=== PATIENT | male | born 1990 | race Two or more races ===

== ENCOUNTER 2022-11-08 00:43 | Inpatient (IN) | payer MEDICAID, OTHER ==
[~2022-11-08] VITALS: Ht 177.8 cm; Wt 71.4 kg
[2022-11-08] VITALS (56 sets, daily range): BP systolic 66–127; BP diastolic 24–62; PULSE 101–157; RESP 15–36; TEMP 99.1–108; O2SAT 95–100
[2022-11-08] MEDS ORDERED: HALOPERIDOL LACTATE 5 MG/ML INJ VIAL ONE (00:49)
[2022-11-08] MEDS ORDERED: SUCCINYLCHOLINE CHLORIDE 20 MG/ML 10ML VIAL IV ONE ×4 (00:49→08:15)
[2022-11-08] MEDS ORDERED: ETOMIDATE (2MG/ML) 20ML VIAL IV ONE ×3 (00:50→08:15)
[2022-11-08] MEDS ORDERED: MIDAZOLAM DRIP 50 mg/50mL 50 ML IV ONE ×3 (00:59→08:21)
[2022-11-08] MEDS: MIDAZOLAM DRIP 50 mg/50mL 50 ML IV SCH ×3 (01:00→22:40)
[2022-11-08] MEDS: PROPOFOL 100 ML IV SCH ×2 (01:15→07:31)
[2022-11-08] MEDS ORDERED: ACETAMINOPHEN 650 MG RECT SUPP PR ONE (01:15)
[2022-11-08] MEDS ORDERED: SODIUM CHLORIDE 0.9% 2,100 ML IV ONE ×2 (01:15→01:45)
[2022-11-08] MEDS ORDERED: ACETAMINOPHEN IV 1000 MG/100ML (10MG/ML) IV ONE (01:30)
[2022-11-08] MEDS ORDERED: HALOPERIDOL LACTATE 5 MG/ML INJ VIAL IM ONE ×3 (01:30→08:15)
[2022-11-08] MEDS ORDERED: LORazepam 2MG/ML-1ML VIAL IM ONE (01:30)
[2022-11-08] MEDS ORDERED: diphenhdrAMINE HCL 50 MG/1 ML VL IM ONE (01:30)
[2022-11-08] MEDS ORDERED: ALBUMIN 25% 100 ML IV ONE (01:30)
[2022-11-08] MEDS ORDERED: VANCOMYCIN 1GM/250ML 250 ML IV ONE (01:30)
[2022-11-08] MEDS ORDERED: SODIUM CHLORIDE 0.9% 1,000 ML IV ONE (01:30)
[2022-11-08] MEDS ORDERED: ONDANSETRON HCL 4 MG/2 ML VIAL IV ONE (01:30)
[2022-11-08 01:32] LABS: Basophils # (auto) 0.1 10 ^3/uL (0-0.2); Basophils % (auto) 0.5 % (0.0-2.0); Eosinophils # (auto) 0 10 ^3/uL (0-0.8); Eosinophils % (auto) 0.1 % (0.0-7.0); Hematocrit 44.3 % (41.0-53.0); Lymphocytes # (auto) 3.9 10 ^3/uL (0.4-5.4); Lymphocytes % (auto) 24.2 % (10.0-50.0); Mean Corpuscular Hemoglobin 29.6 pg (28.0-32.0); Mean Corpuscular Volume 87.1 fL (80.0-100.0); Monocytes # (auto) 1.3 10 ^3/uL (0-1.3); Monocytes % (auto) 8.2 % (0.0-12.0); Neutrophils # (auto) 10.7 10 ^3/uL (1.6-8.6); Red Blood Cells 5.08 10^6/uL (4.5-5.90); Red Cell Distribution Width 13.7 % (11.8-14.3)
[2022-11-08] MEDS ORDERED: SODIUM BICARBONATE 8.4 % INJ 50ML VIAL IV ONE ×2 (01:45→10:15)
[2022-11-08] MEDS ORDERED: ROCURONIUM 10MG/ML 10ML VIAL IV ONE ×3 (01:45)
[2022-11-08 01:50] LABS: INR 1.09 (0.9-1.15); Partial Thromboplastin Time 25.5 SEC (24.5-34.5); Prothrombin Time 11.4 sec (9.3-11.8)
[2022-11-08 02:00] LABS: Lactic Acid w/Reflex 12.1 mmol/L (0.4-2.0)
[2022-11-08 02:08] LABS: Albumin 4.3 g/dL (3.4-5.0); BUN/Creatinine Ratio 12.7 (10.0-20.0); Calcium 8.4 mg/dL (8.5-10.1); Magnesium 2.5 mg/dL (1.6-2.6); Potassium 3.8 mmol/L (3.5-5.1)
[2022-11-08] MEDS ORDERED: NOREPINEPHRINE 8 MG/250ML KIT 250 ML IV ONE (02:09)
[2022-11-08 02:11] LABS: Bilirubin, Total 0.7 mg/dL (0.2-1.0); Total Protein 7.8 g/dL (6.4-8.2)
[2022-11-08] MEDS: NOREPINEPHRINE 8 MG/250ML KIT 250 ML IV SCH (02:30)
[2022-11-08 02:50] LABS: Base Excess -10.3 mmol/L (-2.0-2.0)
[2022-11-08] MEDS ORDERED: cefTRIAXone 1GM/50ML D5W 50 ML IV SCH (03:00)
[2022-11-08 03:56] LABS: Lactic Acid w/Reflex 4.2 mmol/L (0.4-2.0)
[2022-11-08] MEDS: fentaNYL Drip 2500mCg/250mlNS 250 ML IV SCH ×2 (04:00→05:00)
[2022-11-08] MEDS: VASOPRESSIN 20 UNITS in SODIUM CHL 0.9% 99 ML IV SCH ×2 (04:00→15:07)
[2022-11-08] MEDS ORDERED: fentaNYL Drip 2500mCg/250mlNS 250 ML IV ONE (04:08)
[2022-11-08] MEDS ORDERED: DOCUSATE SOD 100 MG CAP PO PRN (04:30)
[2022-11-08] MEDS ORDERED: NITROGLYCERIN 0.4 MG SL TAB SL PRN (04:30)
[2022-11-08] MEDS ORDERED: ONDANSETRON HCL 4 MG/2 ML VIAL IV PRN (04:30)
[2022-11-08] MEDS ORDERED: DEXTROSE (50%) 50ML SYRG IV PRN (04:30)
[2022-11-08] MEDS ORDERED: SODIUM CHLORIDE 0.9% 1,000 ML IV SCH (04:30)
[2022-11-08] MEDS ORDERED: MORPHINE SULFATE INJ 2 MG/ml SYRG IV PRN (04:30)
[2022-11-08] MEDS ORDERED: NALOXONE HCL 1MG/ML 2ML SYRINGE IM ONE (05:45)
[2022-11-08] MEDS: ACCU-CHEK COMFORT CURVE STRIP VI SCH ×4 (08:00→22:35)
[2022-11-08] MEDS: InsuLIN REG 1unit/0.01ml Soln (100units/ml) SC SCH ×4 (08:00→20:00)
[2022-11-08 09:39] LABS: Base Excess -10.5 mmol/L (-2.0-2.0)
[2022-11-08] MEDS ORDERED: HEPARIN SODIUM (PORCINE) 5000 UNITS/ML 1ML VIAL IV ONE (09:45)
[2022-11-08] MEDS: PIPERACILLIN-TAZO 4.5GM 100 ML IV SCH ×3 (09:48→23:24)
[2022-11-08] MEDS: HEPARIN SODIUM (PORCINE) 5000 UNITS/ML 1ML VIAL SC SCH ×2 (10:00→22:00)
[2022-11-08] MEDS: FAMOTIDINE (10MG/ML) 2ML VL IV SCH (10:00)
[2022-11-08 12:54] LABS: Urine Bacteria FEW /hpf (None Seen); Urine Blood 3+ /uL (Negative); Urine Clarity HAZY (Clear); Urine Color Red (Yellow); Urine Hyaline Cast FEW /lpf (0 - 2); Urine Protein, UAD 2+ (Negative); Urine Specific Gravity 1.004 (1.001-1.035); Urine Sperm PRESENT /hpf (None Seen); Urine Urobilinogen Normal (Negative); Urine WBC 94 /hpf (0 - 3)
[2022-11-08 13:17] LABS: Alcohol, Urine < 3.0 mg/dL (0-10); Amphetamine Screen, Urine POSITIVE (NEGATIVE); Barbiturate Scree,Urine NEGATIVE (NEGATIVE); Benzodiazephine Screen, Urine NEGATIVE (NEGATIVE); Cannabinoid Screen, Urine NEGATIVE (NEGATIVE); Cocaine Screen, Urine NEGATIVE (NEGATIVE); Phencyclidine Screen, Urine NEGATIVE (NEGATIVE)
[2022-11-08 13:24] LABS: Opiate Scree,Urine NEGATIVE (NEGATIVE)
[2022-11-08 15:24] LABS: Base Excess -9.6 mmol/L (-2.0-2.0)
[2022-11-08 15:57] LABS: Albumin 3.9 g/dL (3.4-5.0); BUN/Creatinine Ratio 17.2 (10.0-20.0)
[2022-11-08 15:59] LABS: Bilirubin, Total 0.9 mg/dL (0.2-1.0); Total Protein 6.4 g/dL (6.4-8.2)
[2022-11-08 16:03] LABS: Potassium 2.7 mmol/L (3.5-5.1)
[2022-11-08 16:33] LABS: Lactic Acid w/Reflex 2.5 mmol/L (0.4-2.0)
[2022-11-08 17:06] LABS: Eosinophils # (auto) 0 10 ^3/uL (0-0.8); Lymphocytes # (auto) 0.6 10 ^3/uL (0.4-5.4); Monocytes # (auto) 0.8 10 ^3/uL (0-1.3); Neutrophils # (auto) 6.5 10 ^3/uL (1.6-8.6)
[2022-11-08 17:08] LABS: Basophils # (auto) 0 10 ^3/uL (0-0.2); Basophils % (auto) 0.2 % (0.0-2.0); Hematocrit 45.3 % (41.0-53.0); Hemoglobin 15.4 g/dL (13.5-17.5); Lymphocytes % (auto) 8.1 % (10.0-50.0); Mean Corpuscular Hemoglobin 29.6 pg (28.0-32.0); Mean Corpuscular Hgb Conc. 34.1 g/dL (32.0-36.0); Mean Corpuscular Volume 86.9 fL (80.0-100.0); Monocytes % (auto) 10.2 % (0.0-12.0); Neutrophils % (auto) 81.5 % (37.0-80.0); Nucleated Red Blood Cells % 0.4 %; Red Blood Cells 5.22 10^6/uL (4.5-5.90); Red Cell Distribution Width 14.2 % (11.8-14.3)
[2022-11-08 17:23] LABS: Platelet Estimate Decreased
[2022-11-08] MEDS: POTASSIUM CHL 20MEQ/100ML 100 ML IV SCH ×3 (17:50→23:25)
[2022-11-08] MEDS: LACTATED RINGER'S 1,000 ML IV SCH (17:50)
[2022-11-08] MEDS ORDERED: BUMETANIDE 2.5mg/10ml (0.25 mg/ml) INJ IV ONE ×2 (19:00→19:30)
[2022-11-08] MEDS: PANTOPRAZOLE 40 MG/10 ML VIAL INJ IV SCH (22:35)
[2022-11-08] MEDS: LACTULOSE 20Gm/30ML SOLN PO SCH (22:35)
[2022-11-09] VITALS (111 sets, daily range): BP systolic 104–138; BP diastolic 44–76; PULSE 60–114; RESP 15–29; TEMP 92.1–99.5; O2SAT 95–100
[2022-11-09] MEDS: ACCU-CHEK COMFORT CURVE STRIP VI SCH ×7 (00:26→23:40)
[2022-11-09] MEDS: LACTATED RINGER'S 1,000 ML IV SCH ×5 (01:30→20:21)
[2022-11-09] MEDS: VASOPRESSIN 20 UNITS in SODIUM CHL 0.9% 99 ML IV SCH ×2 (02:14→13:21)
[2022-11-09] MEDS: MIDAZOLAM DRIP 50 mg/50mL 50 ML IV SCH ×5 (02:31→21:58)
[2022-11-09] MEDS: InsuLIN REG 1unit/0.01ml Soln (100units/ml) SC SCH ×7 (04:00→23:41)
[2022-11-09] MEDS: fentaNYL Drip 2500mCg/250mlNS 250 ML IV SCH ×3 (04:22→20:17)
[2022-11-09 04:48] LABS: Basophils # (auto) 0 10 ^3/uL (0-0.2); Basophils % (auto) 0.1 % (0.0-2.0); Eosinophils # (auto) 0 10 ^3/uL (0-0.8); Hemoglobin 15.1 g/dL (13.5-17.5); Mean Corpuscular Hemoglobin 30.4 pg (28.0-32.0); Monocytes # (auto) 0.5 10 ^3/uL (0-1.3); Monocytes % (auto) 6.1 % (0.0-12.0)
[2022-11-09 04:50] LABS: Hematocrit 43.3 % (41.0-53.0); Lymphocytes # (auto) 0.9 10 ^3/uL (0.4-5.4); Lymphocytes % (auto) 10.5 % (10.0-50.0); Mean Corpuscular Hgb Conc. 34.8 g/dL (32.0-36.0); Mean Corpuscular Volume 87.3 fL (80.0-100.0); Neutrophils # (auto) 7.3 10 ^3/uL (1.6-8.6); Neutrophils % (auto) 83.3 % (37.0-80.0); Nucleated Red Blood Cells % 0.2 %; Red Blood Cells 4.96 10^6/uL (4.5-5.90); Red Cell Distribution Width 14.2 % (11.8-14.3); White Blood Cell 8.8 10^3/uL (4.4-10.8)
[2022-11-09] MEDS: NOREPINEPHRINE 8 MG/250ML KIT 250 ML IV SCH (05:15)
[2022-11-09 07:31] LABS: Base Excess -10.9 mmol/L (-2.0-2.0)
[2022-11-09] MEDS: PIPERACILLIN-TAZO 4.5GM 100 ML IV SCH (08:32)
[2022-11-09 09:39] LABS: Platelet Estimate Decreased; RBC Morphology Normal
[2022-11-09 09:42] LABS: Giant Platelets Few; Large Platelets MODERATE
[2022-11-09] MEDS: LACTULOSE 20Gm/30ML SOLN PO SCH ×2 (10:00→22:00)
[2022-11-09] MEDS: FAMOTIDINE (10MG/ML) 2ML VL IV SCH (10:00)
[2022-11-09] MEDS: PANTOPRAZOLE 40 MG/10 ML VIAL INJ IV SCH ×2 (11:24→21:53)
[2022-11-09 11:49] LABS: Potassium 3.8 mmol/L (3.5-5.1)
[2022-11-09 11:51] LABS: Albumin 3.1 g/dL (3.4-5.0); BUN/Creatinine Ratio 17.6 (10.0-20.0); Calcium 6.5 mg/dL (8.5-10.1)
[2022-11-09 11:52] LABS: Total Protein 5.9 g/dL (6.4-8.2)
[2022-11-09] MEDS ORDERED: SODIUM BICARBONATE 8.4 % INJ 50ML VIAL IV ONE (12:00)
[2022-11-09] MEDS ORDERED: HEPARIN SODIUM (PORCINE) 5000 UNITS/ML 1ML VIAL IV ONE (13:15)
[2022-11-09] MEDS ORDERED: HEPARIN SODIUM (PORCINE) 5000 UNITS/ML 1ML VIAL ONE (13:20)
[2022-11-09] MEDS ORDERED: LACTATED RINGER'S 1,000 ML IV ONE (13:45)
[2022-11-09] MEDS: BUMETANIDE 2.5mg/10ml (0.25 mg/ml) INJ IV SCH ×2 (14:06→18:11)
[2022-11-09] MEDS: PIPERACILLIN-TAZOB 3.375GM 100 ML IV SCH ×2 (18:11→23:41)
[2022-11-09 22:48] LABS: Hemoglobin 12.6 g/dL (13.5-17.5)
[2022-11-09 22:51] LABS: Basophils # (auto) 0 10 ^3/uL (0-0.2); Basophils % (auto) 0.3 % (0.0-2.0); Eosinophils # (auto) 0 10 ^3/uL (0-0.8); Hematocrit 36.4 % (41.0-53.0); Lymphocytes # (auto) 1.2 10 ^3/uL (0.4-5.4); Mean Corpuscular Hemoglobin 29.9 pg (28.0-32.0); Mean Corpuscular Hgb Conc. 34.7 g/dL (32.0-36.0); Monocytes # (auto) 0.9 10 ^3/uL (0-1.3); Monocytes % (auto) 7.9 % (0.0-12.0); Neutrophils % (auto) 80.8 % (37.0-80.0); Nucleated Red Blood Cells % 0.6 %; Red Blood Cells 4.23 10^6/uL (4.5-5.90); Red Cell Distribution Width 14.3 % (11.8-14.3); White Blood Cell 11.2 10^3/uL (4.4-10.8)
[2022-11-09 23:44] LABS: Large Platelets FEW; Platelet Estimate Decreased
[2022-11-10] VITALS (104 sets, daily range): BP systolic 120–147; BP diastolic 62–80; PULSE 92–107; RESP 13–17; TEMP 95.2–99.3; O2SAT 100
[2022-11-10] MEDS: VASOPRESSIN 20 UNITS in SODIUM CHL 0.9% 99 ML IV SCH ×3 (00:28→22:42)
[2022-11-10] MEDS: PROPOFOL 100 ML IV SCH (01:15)
[2022-11-10] MEDS: MIDAZOLAM DRIP 50 mg/50mL 50 ML IV SCH ×2 (01:52→05:35)
[2022-11-10] MEDS: InsuLIN REG 1unit/0.01ml Soln (100units/ml) SC SCH ×6 (04:00→23:45)
[2022-11-10 04:18] LABS: Albumin 2.4 g/dL (3.4-5.0); Calcium 6.7 mg/dL (8.5-10.1); Potassium 3.6 mmol/L (3.5-5.1)
[2022-11-10 04:21] LABS: BUN/Creatinine Ratio 13.4 (10.0-20.0)
[2022-11-10] MEDS: ACCU-CHEK COMFORT CURVE STRIP VI SCH ×6 (04:22→23:46)
[2022-11-10] MEDS: LACTATED RINGER'S 1,000 ML IV SCH ×5 (04:23→23:00)
[2022-11-10] MEDS: NOREPINEPHRINE 8 MG/250ML KIT 250 ML IV SCH (04:23)
[2022-11-10 04:47] LABS: Bilirubin, Total 1.2 mg/dL (0.2-1.0); Phosphorus 6.7 mg/dL (2.5-4.90); Total Protein 4.6 g/dL (6.4-8.2)
[2022-11-10 05:19] LABS: Erythrocyte Sedimentation Rate 5 mm/hr (0-20)
[2022-11-10] MEDS: BUMETANIDE 2.5mg/10ml (0.25 mg/ml) INJ IV SCH ×2 (05:34→17:07)
[2022-11-10] MEDS ORDERED: SODIUM CHL 0.9% 1000 ML BAG XX ONE (07:00)
[2022-11-10 08:35] LABS: Base Excess -6.1 mmol/L (-2.0-2.0)
[2022-11-10] MEDS: LACTULOSE 20Gm/30ML SOLN PO SCH ×2 (10:00→21:30)
[2022-11-10] MEDS: PIPERACILLIN-TAZOB 3.375GM 100 ML IV SCH ×3 (12:38→23:42)
[2022-11-10] MEDS: FAMOTIDINE (10MG/ML) 2ML VL IV SCH (12:38)
[2022-11-10] MEDS: PANTOPRAZOLE 40 MG/10 ML VIAL INJ IV SCH ×2 (12:39→21:32)
[2022-11-10 17:59] LABS: Basophils # (auto) 0.1 10 ^3/uL (0-0.2); Eosinophils # (auto) 0 10 ^3/uL (0-0.8); Hemoglobin 12.2 g/dL (13.5-17.5); Lymphocytes # (auto) 0.4 10 ^3/uL (0.4-5.4); Monocytes # (auto) 0.7 10 ^3/uL (0-1.3); Neutrophils # (auto) 10.4 10 ^3/uL (1.6-8.6); White Blood Cell 11.6 10^3/uL (4.4-10.8)
[2022-11-10 18:01] LABS: Basophils % (auto) 0.8 % (0.0-2.0); Eosinophils % (auto) 0.1 % (0.0-7.0); Hematocrit 35.7 % (41.0-53.0); Lymphocytes % (auto) 3.7 % (10.0-50.0); Mean Corpuscular Hemoglobin 29.4 pg (28.0-32.0); Mean Corpuscular Hgb Conc. 34.3 g/dL (32.0-36.0); Mean Corpuscular Volume 85.7 fL (80.0-100.0); Monocytes % (auto) 5.7 % (0.0-12.0); Neutrophils % (auto) 89.7 % (37.0-80.0); Nucleated Red Blood Cells % 0.1 %; Red Blood Cells 4.16 10^6/uL (4.5-5.90); Red Cell Distribution Width 14.8 % (11.8-14.3)
[2022-11-10 18:27] LABS: Albumin 2.5 g/dL (3.4-5.0); Calcium 7.3 mg/dL (8.5-10.1); Potassium 3.5 mmol/L (3.5-5.1)
[2022-11-10 18:29] LABS: BUN/Creatinine Ratio 11.2 (10.0-20.0)
[2022-11-10 18:32] LABS: Bilirubin, Total 1.5 mg/dL (0.2-1.0); Total Protein 4.8 g/dL (6.4-8.2)
[2022-11-10] MEDS ORDERED: EPOETIN ALFA-EPBX 10,000 UNIT/1ML VIAL SC ONE (21:00)
[2022-11-10 23:52] LABS: Basophils # (auto) 0.1 10 ^3/uL (0-0.2); Eosinophils # (auto) 0 10 ^3/uL (0-0.8); Eosinophils % (auto) 0.1 % (0.0-7.0); Monocytes # (auto) 0.9 10 ^3/uL (0-1.3); Nucleated Red Blood Cells % 0.1 %
[2022-11-10 23:54] LABS: Basophils % (auto) 0.6 % (0.0-2.0); Hematocrit 35.5 % (41.0-53.0); Hemoglobin 12.4 g/dL (13.5-17.5); Lymphocytes # (auto) 0.9 10 ^3/uL (0.4-5.4); Lymphocytes % (auto) 9.2 % (10.0-50.0); Mean Corpuscular Hemoglobin 30.1 pg (28.0-32.0); Mean Corpuscular Hgb Conc. 34.9 g/dL (32.0-36.0); Mean Corpuscular Volume 86.3 fL (80.0-100.0); Monocytes % (auto) 9.1 % (0.0-12.0); Neutrophils # (auto) 8.4 10 ^3/uL (1.6-8.6); Red Blood Cells 4.11 10^6/uL (4.5-5.90); Red Cell Distribution Width 14.7 % (11.8-14.3); White Blood Cell 10.3 10^3/uL (4.4-10.8)
[2022-11-11] VITALS (103 sets, daily range): BP systolic 117–146; BP diastolic 56–88; PULSE 97–126; RESP 11–44; TEMP 96.6–100.9; O2SAT 86–100
[2022-11-11 00:04] LABS: INR 1.19 (0.9-1.15); Partial Thromboplastin Time 33.3 SEC (24.5-34.5); Prothrombin Time 12.4 sec (9.3-11.8)
[2022-11-11] MEDS: PROPOFOL 100 ML IV SCH (01:06)
[2022-11-11] MEDS: ACCU-CHEK COMFORT CURVE STRIP VI SCH ×5 (03:39→20:22)
[2022-11-11] MEDS: InsuLIN REG 1unit/0.01ml Soln (100units/ml) SC SCH ×5 (03:39→20:23)
[2022-11-11 03:49] LABS: Basophils # (auto) 0 10 ^3/uL (0-0.2); Basophils % (auto) 0.4 % (0.0-2.0); Eosinophils # (auto) 0 10 ^3/uL (0-0.8); Eosinophils % (auto) 0.2 % (0.0-7.0); Hematocrit 33.7 % (41.0-53.0); Hemoglobin 11.7 g/dL (13.5-17.5); Lymphocytes # (auto) 0.8 10 ^3/uL (0.4-5.4); Lymphocytes % (auto) 8.5 % (10.0-50.0); Mean Corpuscular Hemoglobin 29.9 pg (28.0-32.0); Mean Corpuscular Hgb Conc. 34.7 g/dL (32.0-36.0); Mean Corpuscular Volume 86.4 fL (80.0-100.0); Monocytes # (auto) 0.8 10 ^3/uL (0-1.3); Monocytes % (auto) 8.4 % (0.0-12.0); Neutrophils # (auto) 8.2 10 ^3/uL (1.6-8.6); Neutrophils % (auto) 82.5 % (37.0-80.0); Nucleated Red Blood Cells % 0.1 %; Red Cell Distribution Width 14.5 % (11.8-14.3)
[2022-11-11] MEDS: LACTATED RINGER'S 1,000 ML IV SCH ×3 (04:00→14:00)
[2022-11-11] MEDS: fentaNYL Drip 2500mCg/250mlNS 250 ML IV SCH (04:00)
[2022-11-11 04:09] LABS: Potassium 3.6 mmol/L (3.5-5.1)
[2022-11-11 04:22] LABS: Albumin 2.3 g/dL (3.4-5.0); BUN/Creatinine Ratio 9.8 (10.0-20.0); Bilirubin, Total 1.3 mg/dL (0.2-1.0); CRP High Sensitivity 2.76 mg/dL (< 0.3); Calcium 7.1 mg/dL (8.5-10.1); Total Protein 4.8 g/dL (6.4-8.2)
[2022-11-11] MEDS: NOREPINEPHRINE 8 MG/250ML KIT 250 ML IV SCH (05:15)
[2022-11-11] MEDS: BUMETANIDE 2.5mg/10ml (0.25 mg/ml) INJ IV SCH ×2 (05:38→18:11)
[2022-11-11] MEDS ORDERED: DESMOPRESSIN INJECTION 20 MCG in SODIUM CHL 0.9% 50 ML IV ONE (07:00)
[2022-11-11] MEDS: PIPERACILLIN-TAZOB 3.375GM 100 ML IV SCH ×2 (08:48→17:07)
[2022-11-11 09:24] LABS: Folate (Folic Acid) 21.11 ng/mL (5.38-24)
[2022-11-11] MEDS: VASOPRESSIN 20 UNITS in SODIUM CHL 0.9% 99 ML IV SCH ×2 (09:49→20:56)
[2022-11-11 12:54] LABS: Hepatitis A Ab IgM Negative
[2022-11-11 12:55] LABS: Hepatitis B Core IgM Negative; Hepatitis B Surface Antigen Negative (Negative); Hepatitis C Antibody Negative (Negative)
[2022-11-11] MEDS: LACTULOSE 20Gm/30ML SOLN PO SCH ×2 (14:00→22:00)
[2022-11-11] MEDS: PANTOPRAZOLE 40 MG/10 ML VIAL INJ IV SCH ×2 (14:00→22:19)
[2022-11-11] MEDS: ACETAMINOPHEN 650 mg PER 20.3 mL UD GT PRN (18:11)
[2022-11-11] MEDS: cefTRIAXone 1GM/50ML D5W 50 ML IV SCH (20:32)
[2022-11-12] VITALS (97 sets, daily range): BP systolic 93–159; BP diastolic 19–94; PULSE 98–128; RESP 11–31; TEMP 95–100.2; O2SAT 99–100
[2022-11-12] MEDS: ACCU-CHEK COMFORT CURVE STRIP VI SCH ×7 (00:24→23:35)
[2022-11-12] MEDS: InsuLIN REG 1unit/0.01ml Soln (100units/ml) SC SCH ×7 (00:25→23:35)
[2022-11-12] MEDS: MIDAZOLAM DRIP 50 mg/50mL 50 ML IV SCH (01:00)
[2022-11-12] MEDS: PROPOFOL 100 ML IV SCH (01:15)
[2022-11-12] MEDS: fentaNYL Drip 2500mCg/250mlNS 250 ML IV SCH (04:00)
[2022-11-12 04:25] LABS: Calcium 7.8 mg/dL (8.5-10.1); Potassium 4.6 mmol/L (3.5-5.1)
[2022-11-12] MEDS: NOREPINEPHRINE 8 MG/250ML KIT 250 ML IV SCH (05:00)
[2022-11-12] MEDS: BUMETANIDE 2.5mg/10ml (0.25 mg/ml) INJ IV SCH ×2 (06:13→18:17)
[2022-11-12 07:15] LABS: Base Excess -0.5 mmol/L (-2.0-2.0)
[2022-11-12] MEDS: VASOPRESSIN 20 UNITS in SODIUM CHL 0.9% 99 ML IV SCH ×2 (08:03→18:52)
[2022-11-12 08:17] LABS: Haptoglobin 110 mg/dL (17-317)
[2022-11-12] MEDS: LACTULOSE 20Gm/30ML SOLN PO SCH ×2 (10:00→21:30)
[2022-11-12] MEDS ORDERED: SODIUM CHL 0.9% 1000 ML BAG XX ONE (10:00)
[2022-11-12] MEDS: PANTOPRAZOLE 40 MG/10 ML VIAL INJ IV SCH ×2 (10:00→21:30)
[2022-11-12 10:17] LABS: Basophils # (auto) 0.1 10 ^3/uL (0-0.2); Basophils % (auto) 0.6 % (0.0-2.0); Eosinophils # (auto) 0 10 ^3/uL (0-0.8); Hemoglobin 11.4 g/dL (13.5-17.5); Lymphocytes # (auto) 1.1 10 ^3/uL (0.4-5.4); Lymphocytes % (auto) 7.3 % (10.0-50.0); Mean Corpuscular Hemoglobin 29.8 pg (28.0-32.0); Mean Corpuscular Hgb Conc. 34.5 g/dL (32.0-36.0); Mean Corpuscular Volume 86.2 fL (80.0-100.0); Monocytes # (auto) 1.5 10 ^3/uL (0-1.3); Monocytes % (auto) 9.7 % (0.0-12.0); Neutrophils # (auto) 12.8 10 ^3/uL (1.6-8.6); Neutrophils % (auto) 82.4 % (37.0-80.0); Red Blood Cells 3.83 10^6/uL (4.5-5.90); Red Cell Distribution Width 14.5 % (11.8-14.3); White Blood Cell 15.5 10^3/uL (4.4-10.8)
[2022-11-12] MEDS ORDERED: ALBUMIN 25% 100 ML IV PRN (11:15)
[2022-11-12 12:02] LABS: INR 1.13 (0.9-1.15); Partial Thromboplastin Time 26.6 SEC (24.5-34.5); Prothrombin Time 11.8 sec (9.3-11.8)
[2022-11-12] MEDS: cefTRIAXone 1GM/50ML D5W 50 ML IV SCH (20:35)
[2022-11-13] VITALS (102 sets, daily range): BP systolic 124–154; BP diastolic 64–87; PULSE 93–111; RESP 14–21; TEMP 96.8–99; O2SAT 99–100
[2022-11-13] MEDS: MIDAZOLAM DRIP 50 mg/50mL 50 ML IV SCH (01:00)
[2022-11-13] MEDS: PROPOFOL 100 ML IV SCH (01:15)
[2022-11-13] MEDS: InsuLIN REG 1unit/0.01ml Soln (100units/ml) SC SCH ×5 (04:00→20:00)
[2022-11-13] MEDS: fentaNYL Drip 2500mCg/250mlNS 250 ML IV SCH (04:00)
[2022-11-13] MEDS: ACCU-CHEK COMFORT CURVE STRIP VI SCH ×5 (04:04→20:32)
[2022-11-13 04:43] LABS: Calcium 7.9 mg/dL (8.5-10.1); Potassium 3.8 mmol/L (3.5-5.1)
[2022-11-13] MEDS: NOREPINEPHRINE 8 MG/250ML KIT 250 ML IV SCH (05:15)
[2022-11-13] MEDS: BUMETANIDE 2.5mg/10ml (0.25 mg/ml) INJ IV SCH ×2 (06:11→18:03)
[2022-11-13] MEDS: VASOPRESSIN 20 UNITS in SODIUM CHL 0.9% 99 ML IV SCH ×2 (06:17→17:24)
[2022-11-13] MEDS ORDERED: SODIUM CHL 0.9% 1000 ML BAG XX ONE (07:00)
[2022-11-13 08:42] LABS: Base Excess 2.6 mmol/L (-2.0-2.0)
[2022-11-13 10:10] LABS: Cholesterol 119 mg/dL (< 200)
[2022-11-13 10:13] LABS: HDL Cholesterol 19 mg/dL (40-59); LDL Cholesterol 68 mg/dL (< 100); Triglycerides 320 mg/dL (< 150)
[2022-11-13] MEDS: LACTULOSE 20Gm/30ML SOLN PO SCH ×2 (10:27→21:37)
[2022-11-13] MEDS: PANTOPRAZOLE 40 MG/10 ML VIAL INJ IV SCH ×2 (10:27→21:37)
[2022-11-13] MEDS: cefTRIAXone 1GM/50ML D5W 50 ML IV SCH (20:32)
[2022-11-13 22:11] LABS: Fibrin Degredation Products 10 ug/mL (<5)
[2022-11-14] VITALS (71 sets, daily range): BP systolic 110–166; BP diastolic 60–93; PULSE 64–113; RESP 10–29; TEMP 97.9–99.5; O2SAT 99–100
[2022-11-14] MEDS: ACCU-CHEK COMFORT CURVE STRIP VI SCH ×5 (00:25→21:01)
[2022-11-14] MEDS: MIDAZOLAM DRIP 50 mg/50mL 50 ML IV SCH (01:00)
[2022-11-14] MEDS: PROPOFOL 100 ML IV SCH (01:15)
[2022-11-14] MEDS: InsuLIN REG 1unit/0.01ml Soln (100units/ml) SC SCH ×5 (04:00→21:04)
[2022-11-14] MEDS: fentaNYL Drip 2500mCg/250mlNS 250 ML IV SCH (04:00)
[2022-11-14 04:28] LABS: Potassium 3.5 mmol/L (3.5-5.1)
[2022-11-14] MEDS: VASOPRESSIN 20 UNITS in SODIUM CHL 0.9% 99 ML IV SCH ×2 (04:31→15:38)
[2022-11-14 04:33] LABS: BUN/Creatinine Ratio 6.9 (10.0-20.0); Calcium 7.9 mg/dL (8.5-10.1)
[2022-11-14] MEDS: NOREPINEPHRINE 8 MG/250ML KIT 250 ML IV SCH (05:15)
[2022-11-14] MEDS: BUMETANIDE 2.5mg/10ml (0.25 mg/ml) INJ IV SCH ×2 (06:00→17:31)
[2022-11-14] MEDS: PANTOPRAZOLE 40 MG/10 ML VIAL INJ IV SCH ×2 (11:04→21:01)
[2022-11-14] MEDS: LACTULOSE 20Gm/30ML SOLN PO SCH ×2 (11:04→21:01)
[2022-11-14 13:46] LABS: Hematocrit 25.4 % (41.0-53.0); Hemoglobin 8.7 g/dL (13.5-17.5)
[2022-11-14 15:23] LABS: Base Excess 4.5 mmol/L (-2.0-2.0)
[2022-11-14] MEDS: cefTRIAXone 1GM/50ML D5W 50 ML IV SCH (20:59)
[2022-11-14] MEDS ORDERED: EPOETIN ALFA-EPBX 10,000 UNIT/1ML VIAL SC ONE (21:00)
[2022-11-15] VITALS (58 sets, daily range): BP systolic 120–150; BP diastolic 62–92; PULSE 61–106; RESP 14–29; TEMP 96.6–99; O2SAT 94–100
[2022-11-15] MEDS: MIDAZOLAM DRIP 50 mg/50mL 50 ML IV SCH (00:43)
[2022-11-15] MEDS: VASOPRESSIN 20 UNITS in SODIUM CHL 0.9% 99 ML IV SCH ×2 (01:44→13:52)
[2022-11-15] MEDS: fentaNYL Drip 2500mCg/250mlNS 250 ML IV SCH (03:06)
[2022-11-15] MEDS: NOREPINEPHRINE 8 MG/250ML KIT 250 ML IV SCH (05:14)
[2022-11-15] MEDS: BUMETANIDE 2.5mg/10ml (0.25 mg/ml) INJ IV SCH ×2 (06:04→19:14)
[2022-11-15] MEDS: InsuLIN REG 1unit/0.01ml Soln (100units/ml) SC SCH ×4 (06:12→23:37)
[2022-11-15] MEDS: ACCU-CHEK COMFORT CURVE STRIP VI SCH ×4 (06:12→23:37)
[2022-11-15 07:27] LABS: Base Excess 0.7 mmol/L (-2.0-2.0)
[2022-11-15 08:29] LABS: Basophils # (auto) 0 10 ^3/uL (0-0.2); Basophils % (auto) 0.2 % (0.0-2.0); Eosinophils # (auto) 0 10 ^3/uL (0-0.8); Eosinophils % (auto) 0.1 % (0.0-7.0); Hemoglobin 8.6 g/dL (13.5-17.5); Lymphocytes # (auto) 0.8 10 ^3/uL (0.4-5.4); Mean Corpuscular Hemoglobin 30.1 pg (28.0-32.0); Mean Corpuscular Hgb Conc. 34.6 g/dL (32.0-36.0); Mean Corpuscular Volume 86.9 fL (80.0-100.0); Monocytes # (auto) 0.8 10 ^3/uL (0-1.3); Monocytes % (auto) 9.9 % (0.0-12.0); Neutrophils # (auto) 6.3 10 ^3/uL (1.6-8.6); Neutrophils % (auto) 79.8 % (37.0-80.0); Nucleated Red Blood Cells % 0.6 %; Red Blood Cells 2.87 10^6/uL (4.5-5.90); Red Cell Distribution Width 14.8 % (11.8-14.3); White Blood Cell 7.9 10^3/uL (4.4-10.8)
[2022-11-15 08:45] LABS: Albumin 2.8 g/dL (3.4-5.0); Calcium 8.7 mg/dL (8.5-10.1); Potassium 3.5 mmol/L (3.5-5.1)
[2022-11-15 08:48] LABS: BUN/Creatinine Ratio 6.5 (10.0-20.0); Bilirubin, Total 0.5 mg/dL (0.2-1.0); Total Protein 6.4 g/dL (6.4-8.2)
[2022-11-15] MEDS: LACTULOSE 20Gm/30ML SOLN PO SCH ×2 (10:00→21:12)
[2022-11-15] MEDS: PANTOPRAZOLE 40 MG/10 ML VIAL INJ IV SCH ×2 (10:24→21:11)
[2022-11-15] MEDS ORDERED: ALBUMIN 25% 100 ML IV PRN (11:15)
[2022-11-15 12:39] LABS: INR 1.14 (0.9-1.15); Prothrombin Time 11.9 sec (9.3-11.8)
[2022-11-15] MEDS ORDERED: TPN PER PHARMACY 0 ML IV SCH (20:45)
[2022-11-15] MEDS ORDERED: AMINO ACID INFUSION IN D10W 1,000 ML IV NR (21:00)
[2022-11-15] MEDS: cefTRIAXone 1GM/50ML D5W 50 ML IV SCH (21:11)
[2022-11-15] MEDS: methylPREDNISolone SOD SUCC 125 MG/2 ML VL IV SCH (21:12)
[2022-11-16] VITALS (73 sets, daily range): BP systolic 114–157; BP diastolic 57–100; PULSE 55–105; RESP 12–30; TEMP 97.2–98.6; O2SAT 93–100
[2022-11-16] MEDS ORDERED: DEXTROSE (50%) 50ML SYRG IV SCH
[2022-11-16] MEDS: VASOPRESSIN 20 UNITS in SODIUM CHL 0.9% 99 ML IV SCH ×3 (00:08→22:39)
[2022-11-16] MEDS: MIDAZOLAM DRIP 50 mg/50mL 50 ML IV SCH (00:09)
[2022-11-16] MEDS: fentaNYL Drip 2500mCg/250mlNS 250 ML IV SCH (04:00)
[2022-11-16 04:26] LABS: Potassium 4.1 mmol/L (3.5-5.1)
[2022-11-16 04:34] LABS: Albumin 2.9 g/dL (3.4-5.0); BUN/Creatinine Ratio 7.3 (10.0-20.0); Bilirubin, Total 0.4 mg/dL (0.2-1.0); Calcium 8.6 mg/dL (8.5-10.1); Magnesium 3.7 mg/dL (1.6-2.6); Phosphorus 7.9 mg/dL (2.5-4.90); Total Protein 6.6 g/dL (6.4-8.2)
[2022-11-16] MEDS: NOREPINEPHRINE 8 MG/250ML KIT 250 ML IV SCH (04:43)
[2022-11-16] MEDS: BUMETANIDE 2.5mg/10ml (0.25 mg/ml) INJ IV SCH ×2 (05:06→18:13)
[2022-11-16] MEDS: methylPREDNISolone SOD SUCC 125 MG/2 ML VL IV SCH ×3 (05:06→20:56)
[2022-11-16] MEDS: ACCU-CHEK COMFORT CURVE STRIP VI SCH ×4 (05:07→23:13)
[2022-11-16] MEDS: InsuLIN REG 1unit/0.01ml Soln (100units/ml) SC SCH ×4 (05:07→23:15)
[2022-11-16] MEDS ORDERED: SODIUM CHL 0.9% 1000 ML BAG XX ONE (07:00)
[2022-11-16 08:31] LABS: Basophils # (auto) 0 10 ^3/uL (0-0.2); Basophils % (auto) 0.3 % (0.0-2.0); Eosinophils # (auto) 0 10 ^3/uL (0-0.8); Hematocrit 26.4 % (41.0-53.0); Hemoglobin 9.1 g/dL (13.5-17.5); Lymphocytes # (auto) 0.3 10 ^3/uL (0.4-5.4); Lymphocytes % (auto) 4.5 % (10.0-50.0); Mean Corpuscular Hemoglobin 30.6 pg (28.0-32.0); Mean Corpuscular Hgb Conc. 34.5 g/dL (32.0-36.0); Mean Corpuscular Volume 88.5 fL (80.0-100.0); Monocytes # (auto) 0.1 10 ^3/uL (0-1.3); Monocytes % (auto) 1.7 % (0.0-12.0); Neutrophils # (auto) 6.7 10 ^3/uL (1.6-8.6); Neutrophils % (auto) 93.5 % (37.0-80.0); Nucleated Red Blood Cells % 0.1 %; Red Blood Cells 2.98 10^6/uL (4.5-5.90); Red Cell Distribution Width 14.9 % (11.8-14.3); White Blood Cell 7.1 10^3/uL (4.4-10.8)
[2022-11-16] MEDS ORDERED: AMINO ACID INFUSION IN D10W 1,000 ML IV NR (08:53)
[2022-11-16] MEDS: LACTULOSE 20Gm/30ML SOLN PO SCH (08:57)
[2022-11-16] MEDS: B-COMPLEX W/ C & FOLIC ACID(NEPHROVITE TAB) PO SCH (10:00)
[2022-11-16] MEDS: PANTOPRAZOLE 40 MG/10 ML VIAL INJ IV SCH ×2 (10:38→20:54)
[2022-11-16] MEDS: SEVELAMER 800 MG TAB PO SCH ×2 (10:38→17:45)
[2022-11-16] MEDS: ALBUTEROL SULF 2.5 MG/0.5ML(0.5%) NEB SOLN NEB PRN ×2 (12:05→18:16)
[2022-11-16] MEDS: ACETYLCYSTEINE 10 %(100MG/ML) SOL 4ML NEB SCH ×2 (12:05→18:16)
[2022-11-16] MEDS ORDERED: TPN PER PHARMACY IV NR ×5 (20:00)
[2022-11-16] MEDS: cefTRIAXone 1GM/50ML D5W 50 ML IV SCH (20:54)
[2022-11-16] MEDS ORDERED: EPOETIN ALFA-EPBX 10,000 UNIT/1ML VIAL SC ONE (21:00)
[2022-11-17] VITALS (93 sets, daily range): BP systolic 131–166; BP diastolic 66–106; PULSE 58–92; RESP 11–29; TEMP 98–98.7; O2SAT 90–100
[2022-11-17] MEDS: ACETYLCYSTEINE 10 %(100MG/ML) SOL 4ML NEB SCH ×4 (00:28→19:09)
[2022-11-17] MEDS: ALBUTEROL SULF 2.5 MG/0.5ML(0.5%) NEB SOLN NEB PRN ×4 (00:28→19:09)
[2022-11-17] MEDS: MIDAZOLAM DRIP 50 mg/50mL 50 ML IV SCH (01:00)
[2022-11-17] MEDS: fentaNYL Drip 2500mCg/250mlNS 250 ML IV SCH (04:00)
[2022-11-17 05:00] LABS: Potassium 3.4 mmol/L (3.5-5.1)
[2022-11-17 05:11] LABS: Albumin 3.1 g/dL (3.4-5.0); BUN/Creatinine Ratio 8.7 (10.0-20.0); Calcium 8.6 mg/dL (8.5-10.1)
[2022-11-17] MEDS: NOREPINEPHRINE 8 MG/250ML KIT 250 ML IV SCH (05:15)
[2022-11-17 05:21] LABS: Bilirubin, Total 0.3 mg/dL (0.2-1.0); Phosphorus 4.9 mg/dL (2.5-4.90); Total Protein 6.7 g/dL (6.4-8.2)
[2022-11-17] MEDS: methylPREDNISolone SOD SUCC 125 MG/2 ML VL IV SCH ×3 (05:30→21:28)
[2022-11-17] MEDS: ACCU-CHEK COMFORT CURVE STRIP VI SCH ×4 (05:30→23:11)
[2022-11-17] MEDS: BUMETANIDE 2.5mg/10ml (0.25 mg/ml) INJ IV SCH ×2 (05:30→18:04)
[2022-11-17] MEDS: InsuLIN REG 1unit/0.01ml Soln (100units/ml) SC SCH ×4 (05:32→23:12)
[2022-11-17] MEDS: SEVELAMER 800 MG TAB PO SCH ×3 (08:09→18:04)
[2022-11-17] MEDS: ACETAMINOPHEN 650 mg PER 20.3 mL UD GT PRN (08:12)
[2022-11-17] MEDS ORDERED: POTASSIUM CHL 20MEQ/100ML 100 ML IV ONE (09:15)
[2022-11-17] MEDS: VASOPRESSIN 20 UNITS in SODIUM CHL 0.9% 99 ML IV SCH ×2 (10:20→21:21)
[2022-11-17] MEDS: B-COMPLEX W/ C & FOLIC ACID(NEPHROVITE TAB) PO SCH (10:25)
[2022-11-17] MEDS: PANTOPRAZOLE 40 MG/10 ML VIAL INJ IV SCH ×2 (10:25→21:28)
[2022-11-17] MEDS: NICOTINE 21MG/24 HR TOPICAL PATCH TD SCH (14:26)
[2022-11-17] MEDS: amLODIPine BESYLATE 5 MG TAB PO SCH (18:04)
[2022-11-17] MEDS ORDERED: TPN PER PHARMACY IV NR ×6 (20:00)
[2022-11-17] MEDS ORDERED: hydrALAZINE HCL 20 MG/ML VL IV PRN (21:00)
[2022-11-17] MEDS: cefTRIAXone 1GM/50ML D5W 50 ML IV SCH (21:27)
[2022-11-18] VITALS (98 sets, daily range): BP systolic 113–162; BP diastolic 72–105; PULSE 67–118; RESP 16–35; TEMP 98.1–98.3; O2SAT 76–100
[2022-11-18] MEDS: MIDAZOLAM DRIP 50 mg/50mL 50 ML IV SCH (01:00)
[2022-11-18] MEDS: ALBUTEROL SULF 2.5 MG/0.5ML(0.5%) NEB SOLN NEB PRN ×4 (01:06→18:55)
[2022-11-18] MEDS: ACETYLCYSTEINE 10 %(100MG/ML) SOL 4ML NEB SCH ×4 (01:06→18:55)
[2022-11-18 04:43] LABS: Basophils # (auto) 0 10 ^3/uL (0-0.2); Basophils % (auto) 0.1 % (0.0-2.0); Eosinophils # (auto) 0 10 ^3/uL (0-0.8); Hematocrit 27.6 % (41.0-53.0); Hemoglobin 9.4 g/dL (13.5-17.5); Lymphocytes # (auto) 0.5 10 ^3/uL (0.4-5.4); Lymphocytes % (auto) 3.7 % (10.0-50.0); Mean Corpuscular Hemoglobin 30.2 pg (28.0-32.0); Mean Corpuscular Hgb Conc. 34.2 g/dL (32.0-36.0); Mean Corpuscular Volume 88.3 fL (80.0-100.0); Monocytes # (auto) 0.6 10 ^3/uL (0-1.3); Monocytes % (auto) 4.3 % (0.0-12.0); Neutrophils # (auto) 11.8 10 ^3/uL (1.6-8.6); Neutrophils % (auto) 91.9 % (37.0-80.0); Nucleated Red Blood Cells % 0.1 %; Red Blood Cells 3.12 10^6/uL (4.5-5.90); Red Cell Distribution Width 14.9 % (11.8-14.3); White Blood Cell 12.9 10^3/uL (4.4-10.8)
[2022-11-18 04:48] LABS: INR 1.04 (0.9-1.15); Partial Thromboplastin Time 25.4 SEC (24.5-34.5); Prothrombin Time 10.9 sec (9.3-11.8)
[2022-11-18 04:56] LABS: Calcium 8.5 mg/dL (8.5-10.1); Potassium 3.1 mmol/L (3.5-5.1)
[2022-11-18 05:03] LABS: Albumin 3.1 g/dL (3.4-5.0); BUN/Creatinine Ratio 11.1 (10.0-20.0); Bilirubin, Total 0.4 mg/dL (0.2-1.0); Magnesium 2.8 mg/dL (1.6-2.6); Phosphorus 3.8 mg/dL (2.5-4.90); Total Protein 6.4 g/dL (6.4-8.2)
[2022-11-18] MEDS: NOREPINEPHRINE 8 MG/250ML KIT 250 ML IV SCH (05:15)
[2022-11-18] MEDS: ACCU-CHEK COMFORT CURVE STRIP VI SCH ×4 (05:31→23:39)
[2022-11-18] MEDS: BUMETANIDE 2.5mg/10ml (0.25 mg/ml) INJ IV SCH ×2 (05:32→18:06)
[2022-11-18] MEDS: methylPREDNISolone SOD SUCC 125 MG/2 ML VL IV SCH ×3 (05:32→21:15)
[2022-11-18] MEDS: InsuLIN REG 1unit/0.01ml Soln (100units/ml) SC SCH ×4 (05:41→23:42)
[2022-11-18] MEDS ORDERED: SODIUM CHL 0.9% 1000 ML BAG XX ONE (07:00)
[2022-11-18] MEDS: VASOPRESSIN 20 UNITS in SODIUM CHL 0.9% 99 ML IV SCH ×2 (07:24→19:16)
[2022-11-18] MEDS: SEVELAMER 800 MG TAB PO SCH ×3 (07:43→18:08)
[2022-11-18] MEDS ORDERED: NICOTINE 21MG/24 HR TOPICAL PATCH TD SCH (10:00)
[2022-11-18] MEDS: POTASSIUM CHL 20MEQ/100ML 100 ML IV SCH ×2 (12:52→15:05)
[2022-11-18] MEDS: ACETAMINOPHEN 650 mg PER 20.3 mL UD GT PRN (12:55)
[2022-11-18] MEDS: NICOTINE 21MG/24 HR TOPICAL PATCH TD SCH (12:55)
[2022-11-18] MEDS: B-COMPLEX W/ C & FOLIC ACID(NEPHROVITE TAB) PO SCH (12:55)
[2022-11-18] MEDS: PANTOPRAZOLE 40 MG/10 ML VIAL INJ IV SCH ×2 (12:55→21:15)
[2022-11-18] MEDS: amLODIPine BESYLATE 5 MG TAB PO SCH (18:07)
[2022-11-18] MEDS ORDERED: TPN PER PHARMACY IV NR ×10 (20:00)
[2022-11-18] MEDS ORDERED: EPOETIN ALFA-EPBX 10,000 UNIT/1ML VIAL SC ONE (21:00)
[2022-11-18] MEDS: cefTRIAXone 1GM/50ML D5W 50 ML IV SCH (21:07)
[2022-11-19] VITALS (46 sets, daily range): BP systolic 122–156; BP diastolic 77–97; PULSE 71–98; RESP 0–28; TEMP 97.3–98.6; O2SAT 95–100
[2022-11-19] MEDS: ALBUTEROL SULF 2.5 MG/0.5ML(0.5%) NEB SOLN NEB PRN ×3 (00:13→18:51)
[2022-11-19] MEDS: ACETYLCYSTEINE 10 %(100MG/ML) SOL 4ML NEB SCH ×4 (00:13→18:52)
[2022-11-19] MEDS: MIDAZOLAM DRIP 50 mg/50mL 50 ML IV SCH (01:00)
[2022-11-19] MEDS: NOREPINEPHRINE 8 MG/250ML KIT 250 ML IV SCH (02:51)
[2022-11-19 04:41] LABS: Potassium 3.6 mmol/L (3.5-5.1)
[2022-11-19 04:47] LABS: Albumin 3.3 g/dL (3.4-5.0); BUN/Creatinine Ratio 13.3 (10.0-20.0); Bilirubin, Total 0.5 mg/dL (0.2-1.0); Calcium 8.7 mg/dL (8.5-10.1); Magnesium 2.5 mg/dL (1.6-2.6); Phosphorus 3.6 mg/dL (2.5-4.90); Total Protein 6.6 g/dL (6.4-8.2)
[2022-11-19] MEDS: ACCU-CHEK COMFORT CURVE STRIP VI SCH ×3 (05:55→16:56)
[2022-11-19] MEDS: BUMETANIDE 2.5mg/10ml (0.25 mg/ml) INJ IV SCH (05:55)
[2022-11-19] MEDS: InsuLIN REG 1unit/0.01ml Soln (100units/ml) SC SCH ×3 (05:56→17:06)
[2022-11-19] MEDS: VASOPRESSIN 20 UNITS in SODIUM CHL 0.9% 99 ML IV SCH (06:48)
[2022-11-19] MEDS: SEVELAMER 800 MG TAB PO SCH ×4 (07:54→18:00)
[2022-11-19] MEDS: methylPREDNISolone SOD SUCC 125 MG/2 ML VL IV SCH ×2 (09:48→22:00)
[2022-11-19] MEDS: B-COMPLEX W/ C & FOLIC ACID(NEPHROVITE TAB) PO SCH (09:48)
[2022-11-19] MEDS: NICOTINE 21MG/24 HR TOPICAL PATCH TD SCH (09:50)
[2022-11-19] MEDS: PANTOPRAZOLE 40 MG/10 ML VIAL INJ IV SCH ×2 (09:50→20:45)
[2022-11-19] MEDS ORDERED: HEPARIN IN NS 1000Units/500mL 0 ML ONE (09:50)
[2022-11-19] MEDS ORDERED: LIDOCAINE 2%HCL (LOCAL ANESTH.) INJ 20ML MDV ONE (09:50)
[2022-11-19] MEDS ORDERED: HEPARIN SODIUM (PORCINE) 5000 UNITS/ML 1ML VIAL ONE (10:10)
[2022-11-19] MEDS: ERGOCALCIFEROL 50,000 UNIT(1.25MG) CAP PO SCH (11:30)
[2022-11-19] MEDS ORDERED: CIPROFLOXACIN 400MG/200ML 200 ML IV ONE (11:39)
[2022-11-19] MEDS: amLODIPine BESYLATE 5 MG TAB PO SCH (17:14)
[2022-11-19] MEDS ORDERED: TPN PER PHARMACY IV NR ×9 (20:00)
[2022-11-19] MEDS: cefTRIAXone 1GM/50ML D5W 50 ML IV SCH (20:45)
[2022-11-20] VITALS (23 sets, daily range): BP systolic 115–141; BP diastolic 68–89; PULSE 78–97; RESP 15–20; TEMP 97.8–99.7; O2SAT 92–100
[2022-11-20] MEDS: ACETYLCYSTEINE 10 %(100MG/ML) SOL 4ML NEB SCH ×4 (00:20→17:49)
[2022-11-20] MEDS: ALBUTEROL SULF 2.5 MG/0.5ML(0.5%) NEB SOLN NEB PRN ×4 (00:20→17:48)
[2022-11-20] MEDS ORDERED: SODIUM CHL 0.9% 1000 ML BAG XX ONE (07:00)
[2022-11-20 07:01] LABS: Albumin 3.1 g/dL (3.4-5.0); BUN/Creatinine Ratio 17.8 (10.0-20.0); Bilirubin, Total 0.5 mg/dL (0.2-1.0); Magnesium 2.4 mg/dL (1.6-2.6); Phosphorus 2.6 mg/dL (2.5-4.90); Total Protein 6.7 g/dL (6.4-8.2)
[2022-11-20] MEDS: ACCU-CHEK COMFORT CURVE STRIP VI SCH ×4 (07:10→18:17)
[2022-11-20] MEDS: InsuLIN REG 1unit/0.01ml Soln (100units/ml) SC SCH ×4 (07:10→18:00)
[2022-11-20] MEDS: POTASSIUM CHL 20MEQ/100ML 100 ML IV SCH ×2 (09:15→11:15)
[2022-11-20] MEDS: NICOTINE 21MG/24 HR TOPICAL PATCH TD SCH (10:00)
[2022-11-20] MEDS ORDERED: HEPARIN SODIUM (PORCINE) 5000 UNITS/ML 1ML VIAL ONE (10:15)
[2022-11-20] MEDS: SEVELAMER 800 MG TAB PO SCH ×3 (10:15→18:02)
[2022-11-20] MEDS ORDERED: MIDAZOLAM HCL 2MG/2ML 2ml VIAL (1mg/ml) ONE (10:16)
[2022-11-20] MEDS ORDERED: fentaNYL CITRATE 100 MCG/2 ML VL ONE (10:16)
[2022-11-20] MEDS ORDERED: LIDOCAINE 2%HCL (LOCAL ANESTH.) INJ 20ML MDV ONE (10:32)
[2022-11-20] MEDS ORDERED: ceFAZolin 1GM/50ML 50 ML IV ONE (11:15)
[2022-11-20] MEDS: PANTOPRAZOLE 40 MG/10 ML VIAL INJ IV SCH ×2 (14:52→22:42)
[2022-11-20] MEDS: methylPREDNISolone SOD SUCC 125 MG/2 ML VL IV SCH ×2 (14:52→22:42)
[2022-11-20] MEDS: BUMETANIDE 2.5mg/10ml (0.25 mg/ml) INJ IV SCH (14:54)
[2022-11-20] MEDS: B-COMPLEX W/ C & FOLIC ACID(NEPHROVITE TAB) PO SCH (14:56)
[2022-11-20] MEDS ORDERED: POTASSIUM CHL 20MEQ/100ML 100 ML IV SCH (17:15)
[2022-11-20] MEDS: amLODIPine BESYLATE 5 MG TAB PO SCH (18:03)
[2022-11-20] MEDS ORDERED: TPN PER PHARMACY IV NR ×10 (20:00)
[2022-11-20] MEDS: cefTRIAXone 1GM/50ML D5W 50 ML IV SCH (20:38)
[2022-11-20] MEDS ORDERED: EPOETIN ALFA-EPBX 10,000 UNIT/1ML VIAL SC ONE (21:00)
[2022-11-21] VITALS (16 sets, daily range): BP systolic 132–145; BP diastolic 66–98; PULSE 72–104; RESP 18–20; TEMP 97.6–98.4; O2SAT 8–100
[2022-11-21] MEDS: ALBUTEROL SULF 2.5 MG/0.5ML(0.5%) NEB SOLN NEB PRN ×4 (01:03→19:22)
[2022-11-21] MEDS: ACCU-CHEK COMFORT CURVE STRIP VI SCH ×4 (02:48→18:18)
[2022-11-21] MEDS: InsuLIN REG 1unit/0.01ml Soln (100units/ml) SC SCH ×4 (02:48→18:24)
[2022-11-21 06:04] LABS: Calcium 9.1 mg/dL (8.5-10.1); Magnesium 2.2 mg/dL (1.6-2.6); Potassium 4.2 mmol/L (3.5-5.1)
[2022-11-21 06:10] LABS: BUN/Creatinine Ratio 18.4 (10.0-20.0); Bilirubin, Total 0.4 mg/dL (0.2-1.0); Phosphorus 4.2 mg/dL (2.5-4.90); Total Protein 6.5 g/dL (6.4-8.2)
[2022-11-21] MEDS: ACETYLCYSTEINE 10 %(100MG/ML) SOL 4ML NEB SCH ×4 (06:12→19:23)
[2022-11-21] MEDS: SEVELAMER 800 MG TAB PO SCH ×3 (08:00→18:19)
[2022-11-21] MEDS: B-COMPLEX W/ C & FOLIC ACID(NEPHROVITE TAB) PO SCH (10:00)
[2022-11-21] MEDS: BUMETANIDE 2.5mg/10ml (0.25 mg/ml) INJ IV SCH (10:16)
[2022-11-21] MEDS: PANTOPRAZOLE 40 MG/10 ML VIAL INJ IV SCH ×2 (10:16→22:16)
[2022-11-21] MEDS: methylPREDNISolone SOD SUCC 125 MG/2 ML VL IV SCH ×2 (10:17→22:16)
[2022-11-21] MEDS: NICOTINE 21MG/24 HR TOPICAL PATCH TD SCH (10:18)
[2022-11-21] MEDS: LORazepam 2MG/ML-1ML VIAL IV PRN (11:25)
[2022-11-21] MEDS ORDERED: CIPROFLOXACIN 400MG/200ML 200 ML IV ONE (12:57)
[2022-11-21] MEDS ORDERED: MIDAZOLAM HCL 2MG/2ML 2ml VIAL (1mg/ml) ONE (13:23)
[2022-11-21] MEDS ORDERED: fentaNYL CITRATE 100 MCG/2 ML VL ONE (13:23)
[2022-11-21] MEDS ORDERED: PROPOFOL 10 MG/ML 20 ML IV ONE (13:38)
[2022-11-21] MEDS ORDERED: MEPERIDINE HCL (25 MG/ML) 1ML VIAL ONE (13:38)
[2022-11-21] MEDS ORDERED: DexAMETHasone SOD PHOS 10MG/1ML VIAL INJ ONE (13:38)
[2022-11-21] MEDS ORDERED: LABETALOL HCL 5 MG/ML 4ML SYRINGE IV PRN (13:45)
[2022-11-21] MEDS ORDERED: HYDROmorphone HCL 2 MG/ML VL/or syr IV PRN (13:45)
[2022-11-21] MEDS ORDERED: MIDAZOLAM HCL 2MG/2ML 2ml VIAL (1mg/ml) IV PRN (13:45)
[2022-11-21] MEDS ORDERED: ONDANSETRON HCL 4 MG/2 ML VIAL IV PRN (13:45)
[2022-11-21] MEDS ORDERED: MORPHINE SULFATE 4 MG/ML SYR/VIAL IV PRN (13:45)
[2022-11-21] MEDS ORDERED: ePHEDrine SULFATE 50 MG/ML AMP IV PRN (13:45)
[2022-11-21] MEDS: amLODIPine BESYLATE 5 MG TAB PO SCH (18:19)
[2022-11-21 18:40] LABS: Basophils # (auto) 0 10 ^3/uL (0-0.2); Basophils % (auto) 0.2 % (0.0-2.0); Eosinophils # (auto) 0 10 ^3/uL (0-0.8); Hematocrit 30.6 % (41.0-53.0); Hemoglobin 10.2 g/dL (13.5-17.5); Lymphocytes # (auto) 0.6 10 ^3/uL (0.4-5.4); Lymphocytes % (auto) 4.1 % (10.0-50.0); Mean Corpuscular Hemoglobin 29.7 pg (28.0-32.0); Mean Corpuscular Hgb Conc. 33.5 g/dL (32.0-36.0); Mean Corpuscular Volume 88.7 fL (80.0-100.0); Monocytes # (auto) 0.3 10 ^3/uL (0-1.3); Monocytes % (auto) 2.1 % (0.0-12.0); Neutrophils # (auto) 14.5 10 ^3/uL (1.6-8.6); Neutrophils % (auto) 93.6 % (37.0-80.0); Nucleated Red Blood Cells % 0.1 %; Red Blood Cells 3.45 10^6/uL (4.5-5.90); Red Cell Distribution Width 15.3 % (11.8-14.3); White Blood Cell 15.4 10^3/uL (4.4-10.8)
[2022-11-21] MEDS ORDERED: TPN PER PHARMACY IV NR ×9 (20:00)
[2022-11-21] MEDS: cefTRIAXone 1GM/50ML D5W 50 ML IV SCH (22:05)
[2022-11-22] VITALS (13 sets, daily range): BP systolic 126–153; BP diastolic 77–89; PULSE 74–96; RESP 18–24; TEMP 97.7–98.5; O2SAT 96–99
[2022-11-22] MEDS: InsuLIN REG 1unit/0.01ml Soln (100units/ml) SC SCH ×4 (01:29→18:08)
[2022-11-22] MEDS: ACCU-CHEK COMFORT CURVE STRIP VI SCH ×4 (01:31→17:58)
[2022-11-22 06:58] LABS: Potassium 3.8 mmol/L (3.5-5.1)
[2022-11-22] MEDS: ALBUTEROL SULF 2.5 MG/0.5ML(0.5%) NEB SOLN NEB PRN ×3 (07:04→19:47)
[2022-11-22] MEDS: ACETYLCYSTEINE 10 %(100MG/ML) SOL 4ML NEB SCH ×4 (07:04→19:48)
[2022-11-22 07:05] LABS: BUN/Creatinine Ratio 25.9 (10.0-20.0); Bilirubin, Total 0.2 mg/dL (0.2-1.0); Calcium 8.6 mg/dL (8.5-10.1); Magnesium 2.2 mg/dL (1.6-2.6); Phosphorus 3.6 mg/dL (2.5-4.90); Total Protein 6.4 g/dL (6.4-8.2)
[2022-11-22] MEDS: NICOTINE 21MG/24 HR TOPICAL PATCH TD SCH (09:23)
[2022-11-22] MEDS: methylPREDNISolone SOD SUCC 125 MG/2 ML VL IV SCH ×2 (09:24→21:44)
[2022-11-22] MEDS: SEVELAMER 800 MG TAB PO SCH ×3 (09:24→17:58)
[2022-11-22] MEDS: B-COMPLEX W/ C & FOLIC ACID(NEPHROVITE TAB) PO SCH (09:24)
[2022-11-22] MEDS: PANTOPRAZOLE 40 MG/10 ML VIAL INJ IV SCH ×2 (09:24→21:44)
[2022-11-22] MEDS: BUMETANIDE 2.5mg/10ml (0.25 mg/ml) INJ IV SCH (09:24)
[2022-11-22] MEDS: LORazepam 2MG/ML-1ML VIAL IV PRN (17:58)
[2022-11-22] MEDS: amLODIPine BESYLATE 5 MG TAB PO SCH (17:58)
[2022-11-22] MEDS ORDERED: TPN PER PHARMACY IV NR ×11 (20:00)
[2022-11-22] MEDS: cefTRIAXone 1GM/50ML D5W 50 ML IV SCH (21:00)
[2022-11-22] MEDS ORDERED: LORazepam 2MG/ML-1ML VIAL IV PRN (23:15)
[2022-11-23] VITALS (16 sets, daily range): BP systolic 134–143; BP diastolic 71–84; PULSE 76–112; RESP 16–22; TEMP 97.9–98.4; O2SAT 96–100
[2022-11-23] MEDS: ACCU-CHEK COMFORT CURVE STRIP VI SCH ×4 (00:02→17:51)
[2022-11-23] MEDS: ACETYLCYSTEINE 10 %(100MG/ML) SOL 4ML NEB SCH ×4 (00:10→19:22)
[2022-11-23] MEDS: ALBUTEROL SULF 2.5 MG/0.5ML(0.5%) NEB SOLN NEB PRN ×4 (00:10→19:22)
[2022-11-23] MEDS: InsuLIN REG 1unit/0.01ml Soln (100units/ml) SC SCH ×4 (00:11→17:52)
[2022-11-23 03:06] LABS: Anticardiolipin IgG Antibody <9 GPL U/mL (0-14); Anticardiolipin IgM Antibody <9 MPL U/mL (0-12); Protein C Antigen 121 % (60-150)
[2022-11-23 06:52] LABS: Albumin 3.3 g/dL (3.4-5.0); Calcium 8.9 mg/dL (8.5-10.1); Magnesium 2.1 mg/dL (1.6-2.6); Potassium 3.8 mmol/L (3.5-5.1)
[2022-11-23 06:54] LABS: BUN/Creatinine Ratio 29.3 (10.0-20.0)
[2022-11-23 06:56] LABS: Bilirubin, Total 0.3 mg/dL (0.2-1.0); Phosphorus 3.7 mg/dL (2.5-4.90); Total Protein 6.5 g/dL (6.4-8.2)
[2022-11-23] MEDS: B-COMPLEX W/ C & FOLIC ACID(NEPHROVITE TAB) PO SCH (09:16)
[2022-11-23] MEDS: BUMETANIDE 2.5mg/10ml (0.25 mg/ml) INJ IV SCH (09:18)
[2022-11-23] MEDS: NICOTINE 21MG/24 HR TOPICAL PATCH TD SCH (09:18)
[2022-11-23] MEDS: PANTOPRAZOLE 40 MG/10 ML VIAL INJ IV SCH ×2 (09:19→21:25)
[2022-11-23] MEDS: SEVELAMER 800 MG TAB PO SCH ×3 (09:19→17:52)
[2022-11-23] MEDS: methylPREDNISolone SOD SUCC 125 MG/2 ML VL IV SCH (09:19)
[2022-11-23] MEDS: amLODIPine BESYLATE 5 MG TAB PO SCH (17:52)
[2022-11-23] MEDS ORDERED: TPN PER PHARMACY IV NR ×8 (20:00)
[2022-11-23 22:06] LABS: Antithrombin III Antigen 132 % (72-124); Dilute Prothrombin Time(dPT) 37.7 sec (0.0-47.6); Protein S Antigen Free 99 % (61-136); Proten S Antigen Total 101 % (60-150); Thrombin Time 15.7 sec (0.0-23.0); dPT Confirm Ratio 0.99 Ratio (0.00-1.34); dRVVT 38.1 sec (0.0-47.0)
[2022-11-23 23:06] LABS: Lupus Interpretation Comment: (.)
[2022-11-24] VITALS (17 sets, daily range): BP systolic 132–142; BP diastolic 71–93; PULSE 82–111; RESP 18–22; TEMP 97.5–98.4; O2SAT 96–100
[2022-11-24] MEDS: ALBUTEROL SULF 2.5 MG/0.5ML(0.5%) NEB SOLN NEB PRN ×4 (00:15→19:13)
[2022-11-24] MEDS: ACETYLCYSTEINE 10 %(100MG/ML) SOL 4ML NEB SCH ×4 (00:15→19:14)
[2022-11-24] MEDS: LORazepam 2MG/ML-1ML VIAL IV PRN (01:21)
[2022-11-24] MEDS: InsuLIN REG 1unit/0.01ml Soln (100units/ml) SC SCH ×5 (06:00→22:00)
[2022-11-24] MEDS: ACCU-CHEK COMFORT CURVE STRIP VI SCH ×5 (06:00→22:00)
[2022-11-24 06:50] LABS: Albumin 3.1 g/dL (3.4-5.0); Calcium 8.9 mg/dL (8.5-10.1); Magnesium 2.1 mg/dL (1.6-2.6); Potassium 3.1 mmol/L (3.5-5.1)
[2022-11-24 06:58] LABS: BUN/Creatinine Ratio 33.9 (10.0-20.0); Bilirubin, Total 0.3 mg/dL (0.2-1.0); Phosphorus 2.7 mg/dL (2.5-4.90); Total Protein 6.3 g/dL (6.4-8.2)
[2022-11-24] MEDS: B-COMPLEX W/ C & FOLIC ACID(NEPHROVITE TAB) PO SCH (08:53)
[2022-11-24] MEDS: SEVELAMER 800 MG TAB PO SCH ×3 (08:53→18:30)
[2022-11-24] MEDS: methylPREDNISolone SOD SUCC 125 MG/2 ML VL IV SCH (08:56)
[2022-11-24] MEDS: PANTOPRAZOLE 40 MG/10 ML VIAL INJ IV SCH ×2 (08:56→21:36)
[2022-11-24] MEDS: NICOTINE 21MG/24 HR TOPICAL PATCH TD SCH (08:57)
[2022-11-24] MEDS: BUMETANIDE 2.5mg/10ml (0.25 mg/ml) INJ IV SCH (08:58)
[2022-11-24] MEDS ORDERED: POTASSIUM CHL 20 Meq TABLET PO ONE (10:45)
[2022-11-24] MEDS ORDERED: DEXTROSE (50%) 50ML SYRG IV PRN (11:30)
[2022-11-24] MEDS: amLODIPine BESYLATE 5 MG TAB PO SCH (17:59)
[2022-11-25] VITALS (15 sets, daily range): BP systolic 134–143; BP diastolic 88–94; PULSE 78–105; RESP 16–20; TEMP 97.7–98.1; O2SAT 95–100
[2022-11-25] MEDS: ACCU-CHEK COMFORT CURVE STRIP VI SCH ×4 (07:00→21:16)
[2022-11-25] MEDS: InsuLIN REG 1unit/0.01ml Soln (100units/ml) SC SCH ×4 (07:00→21:16)
[2022-11-25] MEDS: SEVELAMER 800 MG TAB PO SCH ×3 (08:05→17:48)
[2022-11-25] MEDS: ALBUTEROL SULF 2.5 MG/0.5ML(0.5%) NEB SOLN NEB PRN ×4 (09:37→23:27)
[2022-11-25] MEDS: ACETYLCYSTEINE 10 %(100MG/ML) SOL 4ML NEB SCH ×5 (09:37→23:27)
[2022-11-25] MEDS: PANTOPRAZOLE 40 MG/10 ML VIAL INJ IV SCH ×2 (10:06→21:10)
[2022-11-25] MEDS: B-COMPLEX W/ C & FOLIC ACID(NEPHROVITE TAB) PO SCH (10:06)
[2022-11-25] MEDS: methylPREDNISolone SOD SUCC 125 MG/2 ML VL IV SCH (10:06)
[2022-11-25] MEDS: NICOTINE 21MG/24 HR TOPICAL PATCH TD SCH (10:09)
[2022-11-25] MEDS: BUMETANIDE 2.5mg/10ml (0.25 mg/ml) INJ IV SCH (10:09)
[2022-11-25 15:16] LABS: BUN/Creatinine Ratio 23.6 (10.0-20.0); Calcium 8.9 mg/dL (8.5-10.1); Potassium 4.2 mmol/L (3.5-5.1)
[2022-11-25] MEDS ORDERED: LIDOCAINE 2%HCL (LOCAL ANESTH.) INJ 10ml MDV ONE (15:38)
[2022-11-25] MEDS: amLODIPine BESYLATE 5 MG TAB PO SCH (17:50)
[2022-11-26] VITALS (16 sets, daily range): BP systolic 128–138; BP diastolic 86–98; PULSE 76–98; RESP 15–20; TEMP 97.4–98.2; O2SAT 97–100
[2022-11-26] MEDS: InsuLIN REG 1unit/0.01ml Soln (100units/ml) SC SCH (06:07)
[2022-11-26] MEDS: ACCU-CHEK COMFORT CURVE STRIP VI SCH (06:08)
[2022-11-26] MEDS: ALBUTEROL SULF 2.5 MG/0.5ML(0.5%) NEB SOLN NEB PRN ×3 (06:41→18:54)
[2022-11-26] MEDS: ACETYLCYSTEINE 10 %(100MG/ML) SOL 4ML NEB SCH ×3 (06:42→18:54)
[2022-11-26 07:20] LABS: BUN/Creatinine Ratio 26.8 (10.0-20.0); Calcium 9.4 mg/dL (8.5-10.1); Potassium 3.7 mmol/L (3.5-5.1)
[2022-11-26] MEDS: BUMETANIDE 2.5mg/10ml (0.25 mg/ml) INJ IV SCH (10:26)
[2022-11-26] MEDS: methylPREDNISolone SOD SUCC 125 MG/2 ML VL IV SCH (10:26)
[2022-11-26] MEDS: PANTOPRAZOLE 40 MG/10 ML VIAL INJ IV SCH ×2 (10:26→22:13)
[2022-11-26] MEDS: ERGOCALCIFEROL 50,000 UNIT(1.25MG) CAP PO SCH (10:27)
[2022-11-26] MEDS: NICOTINE 21MG/24 HR TOPICAL PATCH TD SCH (10:27)
[2022-11-26] MEDS: B-COMPLEX W/ C & FOLIC ACID(NEPHROVITE TAB) PO SCH (10:27)
[2022-11-26] MEDS: SEVELAMER 800 MG TAB PO SCH ×3 (10:27→18:01)
[2022-11-26] MEDS: amLODIPine BESYLATE 5 MG TAB PO SCH (18:01)
[2022-11-27] VITALS (17 sets, daily range): BP systolic 129–137; BP diastolic 92–93; PULSE 77–111; RESP 17–20; TEMP 97.7–98.8; O2SAT 96–100
[2022-11-27] MEDS: ACETYLCYSTEINE 10 %(100MG/ML) SOL 4ML NEB SCH ×5 (00:17→23:14)
[2022-11-27] MEDS: ALBUTEROL SULF 2.5 MG/0.5ML(0.5%) NEB SOLN NEB PRN ×5 (00:18→23:14)
[2022-11-27] MEDS ORDERED: LIDOCAINE 2% JELLY 11ml (GLYDO) UR ONE (08:00)
[2022-11-27] MEDS: SEVELAMER 800 MG TAB PO SCH ×3 (09:31→17:34)
[2022-11-27] MEDS: BUMETANIDE 2.5mg/10ml (0.25 mg/ml) INJ IV SCH (09:31)
[2022-11-27] MEDS: B-COMPLEX W/ C & FOLIC ACID(NEPHROVITE TAB) PO SCH (09:31)
[2022-11-27] MEDS: PANTOPRAZOLE 40 MG/10 ML VIAL INJ IV SCH ×2 (09:31→22:18)
[2022-11-27] MEDS: methylPREDNISolone SOD SUCC 125 MG/2 ML VL IV SCH (09:31)
[2022-11-27] MEDS: NICOTINE 21MG/24 HR TOPICAL PATCH TD SCH (09:34)
[2022-11-27] MEDS: amLODIPine BESYLATE 5 MG TAB PO SCH (17:34)
[2022-11-28] VITALS (15 sets, daily range): BP systolic 123–138; BP diastolic 85–92; PULSE 72–98; RESP 15–22; TEMP 97.6–98.5; O2SAT 98–100
[2022-11-28] MEDS: ACETYLCYSTEINE 10 %(100MG/ML) SOL 4ML NEB SCH ×3 (06:39→18:52)
[2022-11-28] MEDS: ALBUTEROL SULF 2.5 MG/0.5ML(0.5%) NEB SOLN NEB PRN ×3 (06:39→18:51)
[2022-11-28] MEDS: BUMETANIDE 2.5mg/10ml (0.25 mg/ml) INJ IV SCH (09:39)
[2022-11-28] MEDS: B-COMPLEX W/ C & FOLIC ACID(NEPHROVITE TAB) PO SCH (09:39)
[2022-11-28] MEDS: PANTOPRAZOLE 40 MG/10 ML VIAL INJ IV SCH ×2 (09:39→22:01)
[2022-11-28] MEDS: SEVELAMER 800 MG TAB PO SCH ×3 (09:39→17:08)
[2022-11-28] MEDS: NICOTINE 21MG/24 HR TOPICAL PATCH TD SCH (09:41)
[2022-11-28] MEDS: amLODIPine BESYLATE 5 MG TAB PO SCH (17:08)
[2022-11-28 18:21] LABS: Basophils # (auto) 0 10 ^3/uL (0-0.2); Basophils % (auto) 0.5 % (0.0-2.0); Eosinophils # (auto) 0.1 10 ^3/uL (0-0.8); Eosinophils % (auto) 1.5 % (0.0-7.0); Hematocrit 37.4 % (41.0-53.0); Hemoglobin 12.6 g/dL (13.5-17.5); Lymphocytes # (auto) 1.7 10 ^3/uL (0.4-5.4); Lymphocytes % (auto) 16.9 % (10.0-50.0); Mean Corpuscular Hemoglobin 29.7 pg (28.0-32.0); Mean Corpuscular Hgb Conc. 33.7 g/dL (32.0-36.0); Monocytes # (auto) 0.9 10 ^3/uL (0-1.3); Monocytes % (auto) 8.6 % (0.0-12.0); Neutrophils # (auto) 7.2 10 ^3/uL (1.6-8.6); Neutrophils % (auto) 72.5 % (37.0-80.0); Red Blood Cells 4.24 10^6/uL (4.5-5.90); Red Cell Distribution Width 15.5 % (11.8-14.3)
[2022-11-29] VITALS (19 sets, daily range): BP systolic 115–138; BP diastolic 73–98; PULSE 70–106; RESP 12–20; TEMP 97.4–97.9; O2SAT 97–100
[2022-11-29] MEDS: ACETYLCYSTEINE 10 %(100MG/ML) SOL 4ML NEB SCH ×3 (00:26→11:44)
[2022-11-29] MEDS: ALBUTEROL SULF 2.5 MG/0.5ML(0.5%) NEB SOLN NEB PRN ×4 (00:26→19:25)
[2022-11-29 06:47] LABS: Basophils # (auto) 0.1 10 ^3/uL (0-0.2); Basophils % (auto) 0.7 % (0.0-2.0); Eosinophils # (auto) 0.3 10 ^3/uL (0-0.8); Eosinophils % (auto) 2.3 % (0.0-7.0); Hematocrit 38.9 % (41.0-53.0); Hemoglobin 13.2 g/dL (13.5-17.5); Lymphocytes # (auto) 2.3 10 ^3/uL (0.4-5.4); Lymphocytes % (auto) 19.3 % (10.0-50.0); Mean Corpuscular Hemoglobin 29.9 pg (28.0-32.0); Mean Corpuscular Hgb Conc. 33.9 g/dL (32.0-36.0); Mean Corpuscular Volume 88.3 fL (80.0-100.0); Monocytes # (auto) 0.8 10 ^3/uL (0-1.3); Monocytes % (auto) 6.9 % (0.0-12.0); Neutrophils # (auto) 8.6 10 ^3/uL (1.6-8.6); Neutrophils % (auto) 70.8 % (37.0-80.0); Red Blood Cells 4.41 10^6/uL (4.5-5.90); Red Cell Distribution Width 15.7 % (11.8-14.3); White Blood Cell 12.1 10^3/uL (4.4-10.8)
[2022-11-29 07:05] LABS: Calcium 9.5 mg/dL (8.5-10.1); Magnesium 2.2 mg/dL (1.6-2.6); Potassium 3.2 mmol/L (3.5-5.1)
[2022-11-29 07:07] LABS: BUN/Creatinine Ratio 15.4 (10.0-20.0)
[2022-11-29] MEDS: SEVELAMER 800 MG TAB PO SCH ×3 (08:00→17:32)
[2022-11-29] MEDS: B-COMPLEX W/ C & FOLIC ACID(NEPHROVITE TAB) PO SCH (10:57)
[2022-11-29] MEDS: BUMETANIDE 2.5mg/10ml (0.25 mg/ml) INJ IV SCH (10:58)
[2022-11-29] MEDS: PANTOPRAZOLE 40 MG/10 ML VIAL INJ IV SCH (10:58)
[2022-11-29] MEDS: NICOTINE 21MG/24 HR TOPICAL PATCH TD SCH (11:09)
[2022-11-29] MEDS ORDERED: POTASSIUM EFFERVESENT TAB 25 MEQ PO ONE (13:00)
[2022-11-29] MEDS: amLODIPine BESYLATE 5 MG TAB PO SCH (17:32)
[2022-11-30] VITALS (10 sets, daily range): BP systolic 121–139; BP diastolic 86–95; PULSE 89–107; RESP 15–20; TEMP 97.4–98; O2SAT 98–99
[2022-11-30 06:19] LABS: BUN/Creatinine Ratio 18.8 (10.0-20.0); Potassium 3.3 mmol/L (3.5-5.1)
[2022-11-30] MEDS: SEVELAMER 800 MG TAB PO SCH ×3 (09:08→17:41)
[2022-11-30] MEDS: BUMETANIDE 1 MG TAB PO SCH (09:08)
[2022-11-30] MEDS: B-COMPLEX W/ C & FOLIC ACID(NEPHROVITE TAB) PO SCH (09:08)
[2022-11-30] MEDS: PANTOPRAZOLE 40 MG TAB PO SCH (09:08)
[2022-11-30] MEDS: NICOTINE 21MG/24 HR TOPICAL PATCH TD SCH (09:14)
[2022-11-30] MEDS ORDERED: POTASSIUM CHL 20 Meq TABLET PO ONE (09:30)
[2022-11-30] MEDS: amLODIPine BESYLATE 5 MG TAB PO SCH (17:42)
[2022-12-01] VITALS (8 sets, daily range): BP systolic 127–143; BP diastolic 83–101; PULSE 74–103; RESP 15–18; TEMP 97.8–98.3; O2SAT 98–100
[2022-12-01] MEDS: SEVELAMER 800 MG TAB PO SCH ×3 (08:00→17:54)
[2022-12-01] MEDS: BUMETANIDE 1 MG TAB PO SCH (09:11)
[2022-12-01] MEDS: PANTOPRAZOLE 40 MG TAB PO SCH (09:12)
[2022-12-01] MEDS: B-COMPLEX W/ C & FOLIC ACID(NEPHROVITE TAB) PO SCH (09:12)
[2022-12-01] MEDS: NICOTINE 21MG/24 HR TOPICAL PATCH TD SCH (09:12)
[2022-12-01] MEDS: amLODIPine BESYLATE 5 MG TAB PO SCH (17:54)
[2022-12-02] VITALS (11 sets, daily range): BP systolic 127–136; BP diastolic 80–94; PULSE 89–108; RESP 16–20; TEMP 96.5–97.9; O2SAT 98–100
[2022-12-02] MEDS: B-COMPLEX W/ C & FOLIC ACID(NEPHROVITE TAB) PO SCH (09:36)
[2022-12-02] MEDS: BUMETANIDE 1 MG TAB PO SCH (09:38)
[2022-12-02] MEDS: SEVELAMER 800 MG TAB PO SCH ×3 (09:38→18:12)
[2022-12-02] MEDS: PANTOPRAZOLE 40 MG TAB PO SCH (09:40)
[2022-12-02] MEDS: NICOTINE 21MG/24 HR TOPICAL PATCH TD SCH (09:43)
[2022-12-02] MEDS: amLODIPine BESYLATE 5 MG TAB PO SCH (18:12)
[2022-12-02] MEDS: LACTULOSE 20Gm/30ML SOLN PO SCH (22:07)
[2022-12-03] VITALS (15 sets, daily range): BP systolic 118–148; BP diastolic 77–99; PULSE 83–115; RESP 16–20; TEMP 97–98.2; O2SAT 97–100
[2022-12-03] MEDS: B-COMPLEX W/ C & FOLIC ACID(NEPHROVITE TAB) PO SCH (08:53)
[2022-12-03] MEDS: PANTOPRAZOLE 40 MG TAB PO SCH (08:53)
[2022-12-03] MEDS: BUMETANIDE 1 MG TAB PO SCH (08:54)
[2022-12-03] MEDS: NICOTINE 21MG/24 HR TOPICAL PATCH TD SCH (08:56)
[2022-12-03] MEDS: LACTULOSE 20Gm/30ML SOLN PO SCH ×2 (08:56→22:03)
[2022-12-03] MEDS: SEVELAMER 800 MG TAB PO SCH ×3 (09:02→17:45)
[2022-12-03 10:08] LABS: Basophils # (auto) 0.1 10 ^3/uL (0-0.2); Basophils % (auto) 1.3 % (0.0-2.0); Eosinophils # (auto) 0.3 10 ^3/uL (0-0.8); Eosinophils % (auto) 3.5 % (0.0-7.0); Hematocrit 38.9 % (41.0-53.0); Hemoglobin 13.3 g/dL (13.5-17.5); Lymphocytes % (auto) 22.7 % (10.0-50.0); Mean Corpuscular Hemoglobin 30.2 pg (28.0-32.0); Mean Corpuscular Hgb Conc. 34.1 g/dL (32.0-36.0); Mean Corpuscular Volume 88.6 fL (80.0-100.0); Monocytes # (auto) 0.7 10 ^3/uL (0-1.3); Monocytes % (auto) 7.6 % (0.0-12.0); Neutrophils # (auto) 5.8 10 ^3/uL (1.6-8.6); Neutrophils % (auto) 64.9 % (37.0-80.0); Nucleated Red Blood Cells % 0.1 %; Red Blood Cells 4.39 10^6/uL (4.5-5.90); Red Cell Distribution Width 15.2 % (11.8-14.3); White Blood Cell 8.9 10^3/uL (4.4-10.8)
[2022-12-03] MEDS ORDERED: ONDANSETRON HCL 4 MG/2 ML VIAL ONE (10:41)
[2022-12-03] MEDS ORDERED: fentaNYL CITRATE 100 MCG/2 ML VL ONE (10:41)
[2022-12-03] MEDS ORDERED: MIDAZOLAM HCL 2MG/2ML 2ml VIAL (1mg/ml) ONE (10:41)
[2022-12-03] MEDS ORDERED: LIDOCAINE VISCOUS 2% 15ML UD ONE (10:43)
[2022-12-03 11:01] LABS: Partial Thromboplastin Time 27.3 SEC (24.5-34.5); Prothrombin Time 10.5 sec (9.3-11.8)
[2022-12-03 11:37] LABS: BUN/Creatinine Ratio 15.5 (10.0-20.0); Calcium 9.3 mg/dL (8.5-10.1); Potassium 3.8 mmol/L (3.5-5.1)
[2022-12-03] MEDS: ERGOCALCIFEROL 50,000 UNIT(1.25MG) CAP PO SCH (12:33)
[2022-12-03] MEDS: SODIUM CHLOR 0.9% PF (SALINE LOCK) 10ML VIAL/SYR IV SCH ×2 (14:00→22:03)
[2022-12-03] MEDS: amLODIPine BESYLATE 5 MG TAB PO SCH (17:45)
[2022-12-04] VITALS (9 sets, daily range): BP systolic 113–131; BP diastolic 77–94; PULSE 72–117; RESP 16–18; TEMP 97.7–98.9; O2SAT 96–100
[2022-12-04] MEDS: SODIUM CHLOR 0.9% PF (SALINE LOCK) 10ML VIAL/SYR IV SCH ×3 (05:26→21:37)
[2022-12-04] MEDS: LACTULOSE 20Gm/30ML SOLN PO SCH ×2 (09:31→21:37)
[2022-12-04] MEDS: PANTOPRAZOLE 40 MG TAB PO SCH (09:31)
[2022-12-04] MEDS: BUMETANIDE 1 MG TAB PO SCH (09:31)
[2022-12-04] MEDS: B-COMPLEX W/ C & FOLIC ACID(NEPHROVITE TAB) PO SCH (09:31)
[2022-12-04] MEDS: SEVELAMER 800 MG TAB PO SCH ×3 (09:32→19:01)
[2022-12-04] MEDS: NICOTINE 21MG/24 HR TOPICAL PATCH TD SCH (09:32)
[2022-12-04] MEDS ORDERED: MIDAZOLAM HCL 2MG/2ML 2ml VIAL (1mg/ml) IV ONE (10:45)
[2022-12-04] MEDS ORDERED: fentaNYL CITRATE 100 MCG/2 ML VL IV ONE (10:45)
[2022-12-04] MEDS: amLODIPine BESYLATE 5 MG TAB PO SCH (19:02)
[2022-12-05] VITALS (10 sets, daily range): BP systolic 112–140; BP diastolic 70–95; PULSE 72–109; RESP 16–20; TEMP 97.1–98.3; O2SAT 97–100
[2022-12-05] MEDS: SODIUM CHLOR 0.9% PF (SALINE LOCK) 10ML VIAL/SYR IV SCH ×3 (06:07→20:50)
[2022-12-05] MEDS: ASPirin-EC 81 mg tab PO SCH (09:34)
[2022-12-05] MEDS: LACTULOSE 20Gm/30ML SOLN PO SCH ×2 (09:34→20:50)
[2022-12-05] MEDS: NICOTINE 21MG/24 HR TOPICAL PATCH TD SCH (09:34)
[2022-12-05] MEDS: SEVELAMER 800 MG TAB PO SCH ×3 (09:35→17:06)
[2022-12-05] MEDS: PANTOPRAZOLE 40 MG TAB PO SCH (09:35)
[2022-12-05] MEDS: B-COMPLEX W/ C & FOLIC ACID(NEPHROVITE TAB) PO SCH (09:35)
[2022-12-05] MEDS: BUMETANIDE 1 MG TAB PO SCH (09:35)
[2022-12-05] MEDS: LORazepam 2MG/ML-1ML VIAL IV PRN (13:24)
[2022-12-05] MEDS: amLODIPine BESYLATE 5 MG TAB PO SCH (17:07)
[2022-12-06] VITALS (8 sets, daily range): BP systolic 124–134; BP diastolic 82–91; PULSE 60–98; RESP 17–18; TEMP 97.1–98.1; O2SAT 98–100
[2022-12-06] MEDS: SODIUM CHLOR 0.9% PF (SALINE LOCK) 10ML VIAL/SYR IV SCH ×3 (06:13→22:00)
[2022-12-06] MEDS: LACTULOSE 20Gm/30ML SOLN PO SCH ×2 (10:00→22:00)
[2022-12-06] MEDS: SEVELAMER 800 MG TAB PO SCH ×3 (10:49→18:35)
[2022-12-06] MEDS: BUMETANIDE 1 MG TAB PO SCH (10:50)
[2022-12-06] MEDS: ASPirin-EC 81 mg tab PO SCH (10:51)
[2022-12-06] MEDS: PANTOPRAZOLE 40 MG TAB PO SCH (10:51)
[2022-12-06] MEDS: B-COMPLEX W/ C & FOLIC ACID(NEPHROVITE TAB) PO SCH (10:52)
[2022-12-06] MEDS: NICOTINE 21MG/24 HR TOPICAL PATCH TD SCH (10:53)
[2022-12-06] MEDS: amLODIPine BESYLATE 5 MG TAB PO SCH (18:35)
[2022-12-07] VITALS (8 sets, daily range): BP systolic 114–142; BP diastolic 53–89; PULSE 67–109; RESP 14–22; TEMP 97.4–97.8; O2SAT 96–98
[2022-12-07] MEDS: SODIUM CHLOR 0.9% PF (SALINE LOCK) 10ML VIAL/SYR IV SCH ×3 (05:22→21:11)
[2022-12-07] MEDS: SEVELAMER 800 MG TAB PO SCH ×3 (08:37→18:04)
[2022-12-07] MEDS: LACTULOSE 20Gm/30ML SOLN PO SCH ×3 (10:00→21:20)
[2022-12-07] MEDS: ASPirin-EC 81 mg tab PO SCH (10:01)
[2022-12-07] MEDS: BUMETANIDE 1 MG TAB PO SCH (10:01)
[2022-12-07] MEDS: B-COMPLEX W/ C & FOLIC ACID(NEPHROVITE TAB) PO SCH (10:02)
[2022-12-07] MEDS: PANTOPRAZOLE 40 MG TAB PO SCH (10:02)
[2022-12-07] MEDS: NICOTINE 21MG/24 HR TOPICAL PATCH TD SCH (10:02)
[2022-12-07] MEDS: amLODIPine BESYLATE 5 MG TAB PO SCH (18:05)
[2022-12-07] MEDS: ACETAMINOPHEN 325 MG TAB PO PRN (21:07)
[2022-12-08] VITALS (7 sets, daily range): BP systolic 130–134; BP diastolic 85–94; PULSE 86–108; RESP 17; TEMP 97.7–98.3; O2SAT 95–99
[2022-12-08] MEDS: SODIUM CHLOR 0.9% PF (SALINE LOCK) 10ML VIAL/SYR IV SCH ×3 (06:55→21:50)
[2022-12-08] MEDS: SEVELAMER 800 MG TAB PO SCH ×3 (08:23→20:31)
[2022-12-08] MEDS: LACTULOSE 20Gm/30ML SOLN PO SCH ×2 (10:00→21:50)
[2022-12-08] MEDS: PANTOPRAZOLE 40 MG TAB PO SCH (10:10)
[2022-12-08] MEDS: B-COMPLEX W/ C & FOLIC ACID(NEPHROVITE TAB) PO SCH (10:10)
[2022-12-08] MEDS: ASPirin-EC 81 mg tab PO SCH (10:11)
[2022-12-08] MEDS: BUMETANIDE 1 MG TAB PO SCH (10:11)
[2022-12-08] MEDS: NICOTINE 21MG/24 HR TOPICAL PATCH TD SCH (10:22)
[2022-12-08] MEDS: ACETAMINOPHEN 325 MG TAB PO PRN (15:28)
[2022-12-08] MEDS: LORazepam 2MG/ML-1ML VIAL IV PRN (15:35)
[2022-12-08] MEDS: amLODIPine BESYLATE 5 MG TAB PO SCH (20:30)
[2022-12-09] VITALS (7 sets, daily range): BP systolic 129–142; BP diastolic 86–101; PULSE 85–109; RESP 15–17; TEMP 97.6–98.6; O2SAT 97–99
[2022-12-09] MEDS: SODIUM CHLOR 0.9% PF (SALINE LOCK) 10ML VIAL/SYR IV SCH ×3 (05:27→22:50)
[2022-12-09] MEDS: SEVELAMER 800 MG TAB PO SCH ×3 (08:11→18:57)
[2022-12-09] MEDS: LACTULOSE 20Gm/30ML SOLN PO SCH ×3 (10:00→22:51)
[2022-12-09] MEDS: ASPirin-EC 81 mg tab PO SCH (10:14)
[2022-12-09] MEDS: PANTOPRAZOLE 40 MG TAB PO SCH (10:14)
[2022-12-09] MEDS: B-COMPLEX W/ C & FOLIC ACID(NEPHROVITE TAB) PO SCH (10:14)
[2022-12-09] MEDS: BUMETANIDE 1 MG TAB PO SCH (10:20)
[2022-12-09] MEDS: NICOTINE 21MG/24 HR TOPICAL PATCH TD SCH (10:20)
[2022-12-09] MEDS: amLODIPine BESYLATE 5 MG TAB PO SCH (18:59)
[2022-12-10] VITALS (8 sets, daily range): BP systolic 119–146; BP diastolic 79–97; PULSE 45–108; RESP 16–22; TEMP 97–98.4; O2SAT 97–98
[2022-12-10] MEDS: SODIUM CHLOR 0.9% PF (SALINE LOCK) 10ML VIAL/SYR IV SCH ×3 (05:04→21:58)
[2022-12-10] MEDS: B-COMPLEX W/ C & FOLIC ACID(NEPHROVITE TAB) PO SCH (09:07)
[2022-12-10] MEDS: SEVELAMER 800 MG TAB PO SCH ×3 (09:08→17:14)
[2022-12-10] MEDS: ASPirin-EC 81 mg tab PO SCH (09:08)
[2022-12-10] MEDS: PANTOPRAZOLE 40 MG TAB PO SCH (09:08)
[2022-12-10] MEDS: BUMETANIDE 1 MG TAB PO SCH (09:10)
[2022-12-10] MEDS: NICOTINE 21MG/24 HR TOPICAL PATCH TD SCH (09:10)
[2022-12-10] MEDS: LACTULOSE 20Gm/30ML SOLN PO SCH ×2 (09:15→21:58)
[2022-12-10] MEDS: ERGOCALCIFEROL 50,000 UNIT(1.25MG) CAP PO SCH (11:23)
[2022-12-10] MEDS: ACETAMINOPHEN 325 MG TAB PO PRN (17:13)
[2022-12-10] MEDS: amLODIPine BESYLATE 5 MG TAB PO SCH (17:14)
[2022-12-11] VITALS (8 sets, daily range): BP systolic 122–140; BP diastolic 50–95; PULSE 75–119; RESP 15–20; TEMP 97.9–99.3; O2SAT 96–100
[2022-12-11] MEDS: SODIUM CHLOR 0.9% PF (SALINE LOCK) 10ML VIAL/SYR IV SCH ×3 (05:45→21:28)
[2022-12-11] MEDS: SEVELAMER 800 MG TAB PO SCH ×3 (08:58→18:01)
[2022-12-11] MEDS: PANTOPRAZOLE 40 MG TAB PO SCH (08:59)
[2022-12-11] MEDS: B-COMPLEX W/ C & FOLIC ACID(NEPHROVITE TAB) PO SCH (08:59)
[2022-12-11] MEDS: ASPirin-EC 81 mg tab PO SCH (08:59)
[2022-12-11] MEDS: NICOTINE 21MG/24 HR TOPICAL PATCH TD SCH (09:02)
[2022-12-11] MEDS: BUMETANIDE 1 MG TAB PO SCH (09:03)
[2022-12-11] MEDS: LACTULOSE 20Gm/30ML SOLN PO SCH ×2 (09:04→21:27)
[2022-12-11] MEDS: amLODIPine BESYLATE 5 MG TAB PO SCH (18:01)
[2022-12-12] VITALS (8 sets, daily range): BP systolic 110–140; BP diastolic 76–97; PULSE 60–116; RESP 15–21; TEMP 97.2–98.5; O2SAT 95–100
[2022-12-12] MEDS: SODIUM CHLOR 0.9% PF (SALINE LOCK) 10ML VIAL/SYR IV SCH ×3 (05:17→22:17)
[2022-12-12] MEDS: SEVELAMER 800 MG TAB PO SCH ×4 (08:00→17:59)
[2022-12-12] MEDS: BUMETANIDE 1 MG TAB PO SCH ×2 (08:39→09:46)
[2022-12-12] MEDS: LACTULOSE 20Gm/30ML SOLN PO SCH ×2 (08:39→22:00)
[2022-12-12] MEDS: ASPirin-EC 81 mg tab PO SCH ×2 (08:39→09:45)
[2022-12-12] MEDS: B-COMPLEX W/ C & FOLIC ACID(NEPHROVITE TAB) PO SCH ×2 (08:39→09:44)
[2022-12-12] MEDS: NICOTINE 21MG/24 HR TOPICAL PATCH TD SCH ×3 (08:39→10:00)
[2022-12-12] MEDS: PANTOPRAZOLE 40 MG TAB PO SCH ×2 (08:39→09:45)
[2022-12-12] MEDS: amLODIPine BESYLATE 5 MG TAB PO SCH (17:59)
[2022-12-13] MEDS: SODIUM CHLOR 0.9% PF (SALINE LOCK) 10ML VIAL/SYR IV SCH ×3 (06:20→22:00)
[2022-12-13 09:08] VITALS: BP 115/73; PULSE 75; RESP 14; TEMP 98; O2SAT 98
[2022-12-13] MEDS: ASPirin-EC 81 mg tab PO SCH (09:23)
[2022-12-13] MEDS: SEVELAMER 800 MG TAB PO SCH ×3 (09:23→18:04)
[2022-12-13] MEDS: PANTOPRAZOLE 40 MG TAB PO SCH (09:23)
[2022-12-13] MEDS: B-COMPLEX W/ C & FOLIC ACID(NEPHROVITE TAB) PO SCH (09:23)
[2022-12-13] MEDS: BUMETANIDE 1 MG TAB PO SCH (09:23)
[2022-12-13] MEDS: NICOTINE 21MG/24 HR TOPICAL PATCH TD SCH (09:24)
[2022-12-13] MEDS: LACTULOSE 20Gm/30ML SOLN PO SCH ×2 (09:24→21:16)
[2022-12-13 10:00] VITALS: O2SAT 94
[2022-12-13 13:00] VITALS: BP 115/60; PULSE 69; RESP 16; TEMP 98.6; O2SAT 98
[2022-12-13 16:44] VITALS: BP 130/85; PULSE 98; RESP 16; TEMP 98.2; O2SAT 98
[2022-12-13] MEDS: amLODIPine BESYLATE 5 MG TAB PO SCH (18:04)
[2022-12-13 22:00] VITALS: BP 127/81; PULSE 108; RESP 20; TEMP 98.3; O2SAT 97
[2022-12-14] VITALS (8 sets, daily range): BP systolic 118–135; BP diastolic 78–90; PULSE 91–104; RESP 19–22; TEMP 97.2–98.1; O2SAT 98–100
[2022-12-14] MEDS: SODIUM CHLOR 0.9% PF (SALINE LOCK) 10ML VIAL/SYR IV SCH ×3 (06:11→22:00)
[2022-12-14] MEDS: NICOTINE 21MG/24 HR TOPICAL PATCH TD SCH (09:00)
[2022-12-14] MEDS: SEVELAMER 800 MG TAB PO SCH ×3 (09:01→17:34)
[2022-12-14] MEDS: B-COMPLEX W/ C & FOLIC ACID(NEPHROVITE TAB) PO SCH (09:01)
[2022-12-14] MEDS: PANTOPRAZOLE 40 MG TAB PO SCH (09:01)
[2022-12-14] MEDS: BUMETANIDE 1 MG TAB PO SCH (09:01)
[2022-12-14] MEDS: ASPirin-EC 81 mg tab PO SCH (09:01)
[2022-12-14] MEDS: LACTULOSE 20Gm/30ML SOLN PO SCH ×2 (09:02→22:00)
[2022-12-14] MEDS: amLODIPine BESYLATE 5 MG TAB PO SCH (17:38)
[2022-12-15] VITALS (8 sets, daily range): BP systolic 123–132; BP diastolic 88–94; PULSE 79–102; RESP 12–20; TEMP 97.7–98.4; O2SAT 96–100
[2022-12-15] MEDS: SODIUM CHLOR 0.9% PF (SALINE LOCK) 10ML VIAL/SYR IV SCH ×3 (06:11→21:13)
[2022-12-15] MEDS: DOCUSATE SOD 100 MG CAP PO SCH ×2 (09:09→21:12)
[2022-12-15] MEDS: SEVELAMER 800 MG TAB PO SCH ×3 (09:09→17:37)
[2022-12-15] MEDS: B-COMPLEX W/ C & FOLIC ACID(NEPHROVITE TAB) PO SCH (09:09)
[2022-12-15] MEDS: ASPirin-EC 81 mg tab PO SCH (09:09)
[2022-12-15] MEDS: PANTOPRAZOLE 40 MG TAB PO SCH (09:10)
[2022-12-15] MEDS: BUMETANIDE 1 MG TAB PO SCH (09:10)
[2022-12-15] MEDS: LACTULOSE 20Gm/30ML SOLN PO SCH ×2 (09:11→21:11)
[2022-12-15] MEDS: NICOTINE 21MG/24 HR TOPICAL PATCH TD SCH (09:11)
[2022-12-15 10:16] LABS: Basophils # (auto) 0.1 10 ^3/uL (0-0.2); Basophils % (auto) 0.9 % (0.0-2.0); Eosinophils # (auto) 0.2 10 ^3/uL (0-0.8); Eosinophils % (auto) 3.1 % (0.0-7.0); Hematocrit 40.5 % (41.0-53.0); Hemoglobin 13.7 g/dL (13.5-17.5); Lymphocytes # (auto) 3.4 10 ^3/uL (0.4-5.4); Lymphocytes % (auto) 47.7 % (10.0-50.0); Mean Corpuscular Hgb Conc. 33.8 g/dL (32.0-36.0); Mean Corpuscular Volume 88.7 fL (80.0-100.0); Monocytes # (auto) 0.5 10 ^3/uL (0-1.3); Monocytes % (auto) 6.8 % (0.0-12.0); Neutrophils % (auto) 41.5 % (37.0-80.0); Nucleated Red Blood Cells % 0.2 %; Red Blood Cells 4.56 10^6/uL (4.5-5.90); Red Cell Distribution Width 14.2 % (11.8-14.3); White Blood Cell 7.2 10^3/uL (4.4-10.8)
[2022-12-15 10:21] LABS: Anion Gap 7.5 (5-15); Carbon Dioxide 28.5 mmol/L (20-30); Chloride 104 mmol/L (98-107); Potassium 3.9 mmol/L (3.5-5.1); Sodium 140 mmol/L (136-145)
[2022-12-15 10:27] LABS: BUN/Creatinine Ratio 14.7 (10.0-20.0); Blood Urea Nitrogen 15 mg/dL (9-23); Glucose 87 mg/dL (74-106)
[2022-12-15 10:29] LABS: Phosphorus 3.4 mg/dL (2.4-5.1)
[2022-12-15] MEDS: amLODIPine BESYLATE 5 MG TAB PO SCH (17:37)
[2022-12-15] MEDS: ACETAMINOPHEN 325 MG TAB PO PRN (17:41)
[2022-12-16] VITALS (10 sets, daily range): BP systolic 108–130; BP diastolic 68–91; PULSE 84–102; RESP 17–20; TEMP 96.6–98.4; O2SAT 98–99
[2022-12-16] MEDS: SEVELAMER 800 MG TAB PO SCH ×3 (08:00→17:59)
[2022-12-16] MEDS: SODIUM CHLOR 0.9% PF (SALINE LOCK) 10ML VIAL/SYR IV SCH ×3 (09:18→21:57)
[2022-12-16] MEDS: DOCUSATE SOD 100 MG CAP PO SCH ×2 (10:00→21:57)
[2022-12-16] MEDS: B-COMPLEX W/ C & FOLIC ACID(NEPHROVITE TAB) PO SCH (10:00)
[2022-12-16] MEDS: NICOTINE 21MG/24 HR TOPICAL PATCH TD SCH (10:00)
[2022-12-16] MEDS: PANTOPRAZOLE 40 MG TAB PO SCH (10:00)
[2022-12-16] MEDS: BUMETANIDE 1 MG TAB PO SCH (10:00)
[2022-12-16] MEDS: ASPirin-EC 81 mg tab PO SCH (10:00)
[2022-12-16] MEDS: LACTULOSE 20Gm/30ML SOLN PO SCH ×2 (10:00→21:57)
[2022-12-16] MEDS: amLODIPine BESYLATE 5 MG TAB PO SCH (18:00)
[2022-12-17] VITALS (8 sets, daily range): BP systolic 121–137; BP diastolic 76–92; PULSE 75–110; RESP 14–18; TEMP 97.1–98.2; O2SAT 95–99
[2022-12-17] MEDS: SODIUM CHLOR 0.9% PF (SALINE LOCK) 10ML VIAL/SYR IV SCH ×3 (06:01→21:32)
[2022-12-17] MEDS: SEVELAMER 800 MG TAB PO SCH ×3 (08:00→18:16)
[2022-12-17] MEDS: LACTULOSE 20Gm/30ML SOLN PO SCH ×2 (09:21→21:32)
[2022-12-17] MEDS: ASPirin-EC 81 mg tab PO SCH (10:11)
[2022-12-17] MEDS: PANTOPRAZOLE 40 MG TAB PO SCH (10:11)
[2022-12-17] MEDS: BUMETANIDE 1 MG TAB PO SCH (10:11)
[2022-12-17] MEDS: DOCUSATE SOD 100 MG CAP PO SCH ×2 (10:11→21:32)
[2022-12-17] MEDS: NICOTINE 21MG/24 HR TOPICAL PATCH TD SCH (10:14)
[2022-12-17] MEDS: ACETAMINOPHEN 325 MG TAB PO PRN (11:40)
[2022-12-17] MEDS: ERGOCALCIFEROL 50,000 UNIT(1.25MG) CAP PO SCH (11:41)
[2022-12-17] MEDS: amLODIPine BESYLATE 5 MG TAB PO SCH (18:17)
[2022-12-18] MEDS: SODIUM CHLOR 0.9% PF (SALINE LOCK) 10ML VIAL/SYR IV SCH ×3 (06:00→21:31)
[2022-12-18 08:00] VITALS: PULSE 78; RESP 8; O2SAT 96
[2022-12-18 09:10] VITALS: BP 116/78; PULSE 59; RESP 19; TEMP 98.3; O2SAT 96
[2022-12-18] MEDS: SEVELAMER 800 MG TAB PO SCH ×3 (09:44→18:27)
[2022-12-18] MEDS: ASPirin-EC 81 mg tab PO SCH (09:44)
[2022-12-18] MEDS: PANTOPRAZOLE 40 MG TAB PO SCH (09:44)
[2022-12-18] MEDS: DOCUSATE SOD 100 MG CAP PO SCH ×2 (09:44→21:33)
[2022-12-18] MEDS: BUMETANIDE 1 MG TAB PO SCH (09:45)
[2022-12-18] MEDS: LACTULOSE 20Gm/30ML SOLN PO SCH ×2 (09:49→21:31)
[2022-12-18 10:00] VITALS: O2SAT 96
[2022-12-18 13:00] VITALS: BP 135/96; PULSE 98; RESP 18; TEMP 98.3; O2SAT 97
[2022-12-18 22:00] VITALS: BP 135/93; PULSE 89; RESP 17; TEMP 98; O2SAT 97
[2022-12-19 05:00] VITALS: BP 117/80; PULSE 80; RESP 16; TEMP 98; O2SAT 99
[2022-12-19] MEDS: SODIUM CHLOR 0.9% PF (SALINE LOCK) 10ML VIAL/SYR IV SCH ×2 (05:53→13:36)
[2022-12-19 08:00] VITALS: RESP 8; O2SAT 96
[2022-12-19] MEDS: ASPirin-EC 81 mg tab PO SCH (09:26)
[2022-12-19] MEDS: DOCUSATE SOD 100 MG CAP PO SCH (09:26)
[2022-12-19] MEDS: BUMETANIDE 1 MG TAB PO SCH (09:30)
[2022-12-19] MEDS: PANTOPRAZOLE 40 MG TAB PO SCH (09:31)
[2022-12-19] MEDS: SEVELAMER 800 MG TAB PO SCH ×3 (09:31→18:03)
[2022-12-19] MEDS: LACTULOSE 20Gm/30ML SOLN PO SCH (09:32)
[2022-12-19 09:34] VITALS: BP 121/74; PULSE 76; RESP 15; TEMP 98.6; O2SAT 97
[2022-12-19 10:00] VITALS: O2SAT 96
[2022-12-19 12:44] VITALS: BP 129/85; PULSE 90; RESP 16; TEMP 98; O2SAT 99
[2022-12-19 16:29] VITALS: BP 134/99; PULSE 82; RESP 15; TEMP 98.3; O2SAT 97
== END 2022-12-19 20:30 | DRG 130 ==
LOC: ER 00:43 → TELE 05:39 → ICU WEST 13:59 → TELE-EAST 11-19 15:58 → TELE-WESTW 11-19 23:46 → TELE-E-ADS 12-05 21:22 → TELE-CENTR 12-16 21:03 → CENTRAL 12-18 12:19
PROVIDERS: ADMIT Internal Medicine; ATTEND Internal Medicine
PROC: 0BH17EZ Insertion of Endotracheal Airway into Trachea, Via Natural or Artificial Opening (ICD-10-PCS; principal; 2022-11-08)
PROC: 5A1955Z Respiratory Ventilation, Greater than 96 Consecutive Hours (ICD-10-PCS; 2022-11-08)
PROC: 02HV33Z Insertion of Infusion Device into Superior Vena Cava, Percutaneous Approach (ICD-10-PCS; 2022-11-09)
PROC: B548ZZA Ultrasonography of Superior Vena Cava, Guidance (ICD-10-PCS; 2022-11-09)
PROC: 02HV33Z Insertion of Infusion Device into Superior Vena Cava, Percutaneous Approach (ICD-10-PCS; 2022-11-09)
PROC: B548ZZA Ultrasonography of Superior Vena Cava, Guidance (ICD-10-PCS; 2022-11-09)
PROC: 30233R1 Transfusion of Nonautologous Platelets into Peripheral Vein, Percutaneous Approach (ICD-10-PCS; 2022-11-09)
PROC: 5A1D70Z Performance of Urinary Filtration, Intermittent, Less than 6 Hours Per Day (ICD-10-PCS; 2022-11-10)
PROC: 5A1D70Z Performance of Urinary Filtration, Intermittent, Less than 6 Hours Per Day (ICD-10-PCS; 2022-11-11)
PROC: 5A1D70Z Performance of Urinary Filtration, Intermittent, Less than 6 Hours Per Day (ICD-10-PCS; 2022-11-12)
PROC: 30233N1 Transfusion of Nonautologous Red Blood Cells into Peripheral Vein, Percutaneous Approach (ICD-10-PCS; 2022-11-14)
PROC: 5A1D70Z Performance of Urinary Filtration, Intermittent, Less than 6 Hours Per Day (ICD-10-PCS; 2022-11-14)
PROC: 5A1D70Z Performance of Urinary Filtration, Intermittent, Less than 6 Hours Per Day (ICD-10-PCS; 2022-11-16)
PROC: 5A1D70Z Performance of Urinary Filtration, Intermittent, Less than 6 Hours Per Day (ICD-10-PCS; 2022-11-18)
PROC: 0JH63XZ Insertion of Tunneled Vascular Access Device into Chest Subcutaneous Tissue and Fascia, Percutaneous Approach (ICD-10-PCS; 2022-11-20)
PROC: 02H633Z Insertion of Infusion Device into Right Atrium, Percutaneous Approach (ICD-10-PCS; 2022-11-20)
PROC: B5181ZA Fluoroscopy of Superior Vena Cava using Low Osmolar Contrast, Guidance (ICD-10-PCS; 2022-11-20)
PROC: B548ZZA Ultrasonography of Superior Vena Cava, Guidance (ICD-10-PCS; 2022-11-20)
PROC: 5A1D70Z Performance of Urinary Filtration, Intermittent, Less than 6 Hours Per Day (ICD-10-PCS; 2022-11-20)
PROC: 0TCB8ZZ Extirpation of Matter from Bladder, Via Natural or Artificial Opening Endoscopic (ICD-10-PCS; 2022-11-21)
PROC: 0TCD8ZZ Extirpation of Matter from Urethra, Via Natural or Artificial Opening Endoscopic (ICD-10-PCS; 2022-11-21)
PROC: 0JPT3XZ Removal of Tunneled Vascular Access Device from Trunk Subcutaneous Tissue and Fascia, Percutaneous Approach (ICD-10-PCS; 2022-11-25)
PROC: B24BZZ4 Ultrasonography of Heart with Aorta, Transesophageal (ICD-10-PCS; 2022-12-03)
DX: J96.01 Acute respiratory failure with hypoxia (principal); I63.9 Cerebral infarction, unspecified; G93.6 Cerebral edema; N17.0 Acute kidney failure with tubular necrosis; G92.8 Other toxic encephalopathy; T88.3XXA Malignant hyperthermia due to anesthesia, initial encounter; E87.1 Hypo-osmolality and hyponatremia; M62.82 Rhabdomyolysis; D69.6 Thrombocytopenia, unspecified; E86.0 Dehydration; N39.0 Urinary tract infection, site not specified; I21.A1 Myocardial infarction type 2; I50.20 Unspecified systolic (congestive) heart failure; G93.1 Anoxic brain damage, not elsewhere classified; K92.2 Gastrointestinal hemorrhage, unspecified; F41.9 Anxiety disorder, unspecified; T43.651A Poisoning by methamphetamines accidental (unintentional), initial encounter; R31.0 Gross hematuria; D50.0 Iron deficiency anemia secondary to blood loss (chronic); E83.39 Other disorders of phosphorus metabolism; N18.9 Chronic kidney disease, unspecified; Z79.82 Long term (current) use of aspirin; R74.01 Elevation of levels of liver transaminase levels
CPT/HCPCS: 31500; 36415; 36558; 36589; 36600; 70450; 70551; 71045; 71250; 72125; 74176; 76775; 76937; 77001; 80048; 80053; 80061; 80074; 80307; 80320; 80329; 81001; 81241; 82040; 82140; 82306; 82550; 82553; 82607; 82728; 82746; 82805; 82962; 83010; 83540; 83550; 83605; 83615; 83690; 83735; 83880; 83970; 84100; 84443; 84478; 84484; 85014; 85018; 85025; 85301; 85302; 85305; 85306; 85362; 85379; 85384; 85610; 85613; 85652; 85670; 85705; 85730; 85732; 86141; 86147; 86703; 86850; 86900; 86901; 86920; 87040; 87070; 87081; 87086; 87205; 90935; 92507; 92523; 92610; 93005; 93306; 93312; 93886; 94002; 94003; 94640; 95819; 96361; 96365; 96367; 96368; 97110; 97116; 97163; 97530; 99152; 99291; C1894; C9113; G0378; J0131; J0330; J0690; J0696; J1100; J1642; J1815; J2001; J2250; J2405; J2543; J2704; J3480; J3490; J7131; P9047